=== PATIENT | male | born 1940 | race Caucasian/White ===

== ENCOUNTER 2020-04-11 08:51 | Outpatient (REF) | payer MEDICARE, OTHER, SELFPAY ==
--- NOTE | 2020-04-11 14:08 | MHC.AU.P13 ---
Adult Audiological Evaluation Date of Visit: 04/11/20 Varnish Melter Used: Not Applicable Reason for Appointment: Audiologic re-evaluation due to question of change in hearing ability. Slick notes he is having a difficult time using the hearing aids over the past year. Since last tested, he is using oxygen which has a thick tube which goes around his ears, he wears glasses, and due to COVID-19 wears a mask when going out. He is mostly at home and feels he is managing not regularly using the hearing aids at this time. Previous Hearing Test Results: 03/01/2019 [facility] Bilateral mild sloping to severe sensorineural hearing loss with 88% speech understanding for the right ear and 76% for the left ear at 70 dB HL. Ear History: Bothersome Hyperacusis/Tinnitus/Ringing/Noises in Ears: Both Ears History of occupational noise exposure?: Yes Medical History: Medical History: Cancer Rheumatoid Arthritis Slick reports he has been on both chemotherapy and then immunotherapy for the cancer. Due to side effects, he has gone off all cancer treatments. Luckily he was told after his last workup, the cancer has not progressed. Allergies: Medication List: Oxygen, Anoro, Albuterol, Prednisone, Vitamin D3, Ompeprazole, Fludcinonide, Xiindra, Zyrtec, Melatonin, Vitamin C, Morphine, Asprin, Cefazolin, Levaquin, Zymor, Ketzal, Ancef Hearing Instrument History- Right Ear: Special Education Paraprofessional: [employer] Model: BioLight [employer] V 90 M Serial Number: [id number] Battery Size: 312 Repair Warranty: Dispensed By: [facility] Date of Fittin07/09/2015 Hearing Instrument History- Left Ear: Special Education Paraprofessional: [employer] Model: [employer]Light [employer] V 90 M Serial Number: [id number] Battery Size: 312 Warranty: 03/05/2021 Loss and Damage Warranty: 03/05/2021 Dispensed By: [facility] Date of Fittin12/26/2017 Otoscopy: Right Ear: Unremarkable Left Ear: Unremarkable Tympanometry: Tympanometry performed due to: Right Ear: Not performed at today's visit Left Ear: Not performed at today's visit Hearing Evaluation: Transducer(s) Used: Insert Earphones Bone Conduction Method: Conventional Audiometry Stimuli Used: Pure Tones Right Ear: Description of Hearing: Moderate sloping to moderately-severe sensorineural hearing loss Left Ear: Description of Hearing: Mild sloping to moderately-severe sensorineural hearing loss Speech Recognition Threshold (SRT): Method Used: Monitored Live Voice Stimuli Used: Spondee Words Right Ear: 45 dB HL Left Ear: 45 dB HL Word Discrimination: Method: Recorded Lists Word Lists Used: NU-6 Right Ear: 76% at 65 dB HL 96% at 70 dB HL Left Ear: 72% at 70 dB HL Most Comfortable Level (MCL): Right Ear: 65 dB HL Left Ear: 70 dB HL QuickSIN: Did not test due to Slick's history of very bothersome hyperacusis. Loud sounds cause ear pain Comparison: Compared to most recent evaluation: Low frequency thresholds have decreased 5-10 dB with thresholds at 8000 Hz improving 10 dB HL. Speech discrimination is overall stable when tested at 70 dB HL for both ears. Recommendations: Audiological re-evaluation in one year. Provided a face mask clip to try to help keep the mask elastics away from Slick's ears. Due to his involved medical history, he is advised to use the hearing aids as he feels comfortable. Diagnosis: Primary Diagnosis: H90.3 Bilateral Sensorineural Hearing Loss Services Performed: Comprehensive Audiological Evaluation (CPT 83216) Signature: Provider: Lesvia Payton, [facility]
== END 2020-04-11 08:52 | disposition home or self-care (01) ==
LOC: HO.SH 08:51
PROVIDERS: Visit Provider Internal Medicine
DX: H90.3 Sensorineural hearing loss, bilateral (principal)
CPT/HCPCS: 92557

== ENCOUNTER 2020-09-18 09:42 | Inpatient (IN) | payer MEDICARE, OTHER, SELFPAY ==
[2020-09-18] VITALS (7 sets, daily range): BP systolic 133–202; BP diastolic 66–98; PULSE 75–94; RESP 14–24; TEMP 36.8–37.1; O2SAT 95–99; BMI 22.8
--- NOTE | ~2020-09-18 | CT_ITS ---
EXAMINATION: CT ANGIOGRAM NECK WITH CONTRAST CT ANGIOGRAM BRAIN WITH CONTRAST CLINICAL INFORMATION: Altered mental status. COMPARISON: Noncontrast head CT performed just prior. TECHNIQUE: Test bolus sequences followed by intravenous administration 100 mL of Omnipaque 350. Helical imaging was performed in the axial plane from the thoracic inlet to the skull vertex. Delayed postcontrast imaging of the head was also performed. The data was processed at the senior technologist workstation for generation of MIP sequences. Angled MIPs and volume rendered reformatted images were also generated at an offline 3D workstation. Stenoses are assessed in accordance with NASCET criteria unless otherwise indicated. This CT examination was performed using dose optimization techniques as appropriate, variously including the following: *Automated exposure control *Adjustment of mA and/or kV according to patient size (this includes techniques or standardized protocols for targeted exams where dose is matched to indication/reason for exam; i.e. extremities or head) *Use of iterative reconstruction technique DLP: 2120 mGy-cm FINDINGS: Head CT: There is no intracranial hemorrhage, mass effect, or extra-axial collection. No definite territorial infarction is seen. Background changes of mild to moderate chronic microangiopathy are noted. There is no abnormal enhancement. There is a chronic lacunar infarct within the right cerebellum. The extracranial structures are within normal limits. Neck CTA: The aortic arch demonstrates atheromatous changes but is patent. The great vessel origins are patent. Both common carotid arteries are patent. Mild atheromatous changes are seen along the proximal internal carotid arteries without associated stenosis. The bilateral cervical ICA segments are patent. Minimal atheromatous changes are present at the carotid siphons. Both vertebral arteries are patent throughout their cervical course and appear codominant. Head CTA: The intradural vertebral arteries are patent without stenosis. The basilar artery is patent. The bilateral cyber forensics analyst are patent. The bilateral ICAs are patent. 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 The ACAs and MCAs are patent. The dural venous sinuses are patent. Non-vascular findings: The cervical soft tissues appear normal. Severe emphysema is present within the upper lungs. A 1.8 cm stellate lesion is seen within the right lung apex with associated architectural distortion. Advanced spondylosis is present in the spine. CT/CT angio head neck stroke IMPRESSION: CT head: No intracranial hemorrhage or large acute infarction. CTA neck: No hemodynamically significant stenosis in the major arteries of the neck. CTA head: No large vessel occlusion or significant stenosis within the intracranial circulation. 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 Additional findings: Stellate lesion seen at the right lung apex measuring 1.8 cm with associated architectural distortion. Severe emphysema is seen. According to the updated 2017 Fleischner Society recommendations, the advised follow-up imaging for a single solid nodule measuring 8 mm or greater is: Consider CT, PET/CT, or tissue sampling at 3 months. This critical result was discussed with Dr. Adam on 09/18/2020 10:19AM, and it was ascertained that the content and urgency of the report was understood at the time of direct communication.
--- NOTE | ~2020-09-18 | XR_ITS ---
EXAMINATION: XR CHEST CLINICAL INFORMATION: Shortness of breath COMPARISON: Chest radiographs 03/31/2016 TECHNIQUE: Portable upright AP view of the chest was obtained. FINDINGS: There is no pneumothorax, pleural reaction, airspace consolidation, or effusion. The heart is normal in size and the hilar and mediastinal contours are normal. No visible acute bony abnormality. Suspect small cyst right anterior first rib questionably present on prior study 2016. Remainder of the bony structures are unremarkable. XR/XR chest 1V IMPRESSION: 1. No acute intrathoracic disease. No pneumothorax, infiltrate, or effusion. 2. Question small cystic lesion right anterior first rib.
--- NOTE | ~2020-09-18 | MR_ITS ---
MRI OF THE BRAIN WITHOUT IV CONTRAST INDICATION: CVA. COMPARISON: Head CT and CTA head and neck performed earlier the same day. TECHNIQUE: Multiplanar multisequence MR imaging of the brain was obtained without IV contrast. FINDINGS: There is no hydrocephalus, extra-axial surface collection, or herniation. T2 signal changes throughout the supratentorial white matter and central malgorzata, most likely moderate chronic microangiopathy. There are chronic lacunar infarcts within the supratentorial white matter as well. The major flow voids at the skull base are preserved. There is no acute infarct on diffusion-weighted imaging. There is no intracranial hemorrhage on the gradient recalled echo acquisition. Punctate focus of probable chronic hemosiderin staining within the right peritrigonal white matter. The midline structures are normal. The cerebellar tonsils are normally positioned. The cerebellum and brainstem are normal. The craniocervical junction is normal. Osseous marrow signal intensity is homogenous. The visualized soft tissues are unremarkable. MR/MR head/brain wo con IMPRESSION: - There are no acute intracranial findings. No acute infarcts. - T2 signal changes throughout the supratentorial white matter and central malgorzata, most likely moderate chronic microangiopathy. There are chronic lacunar infarcts within the supratentorial white matter as well.
--- NOTE | ~2020-09-18 | CT_ITS ---
EXAMINATION: CT HEAD WITHOUT CONTRAST (STROKE PROTOCOL) CLINICAL INFORMATION: Stroke protocol. Change in speech. COMPARISON: None. TECHNIQUE: Contiguous axial imaging was performed from the skull base to vertex without intravenous administration of contrast. This CT examination was performed using dose optimization techniques as appropriate, variously including the following: *Automated exposure control *Adjustment of mA and/or kV according to patient size (this includes techniques or standardized protocols for targeted exams where dose is matched to indication/reason for exam; i.e. extremities or head) *Use of iterative reconstruction technique DLP: 2120 mGy-cm FINDINGS: There is no intracranial hemorrhage, hematoma, or extra-axial fluid collection. The lateral ventricles are symmetrical in size and configuration and enlarged. There is diffuse periarticular hypodensity suggestive of chronic microangiopathy. The alberto-white matter differentiation appears symmetric. There is no acute infarct or mass lesion. The calvarium appears intact. There is no pneumocephalus or orbital emphysema. The visualized sinuses and middle ears and mastoid air cells show no significant mucosal thickening. There are no air-fluid levels. CT/CT head for stroke IMPRESSION: No acute intracranial process seen. Age-related cerebral volume loss with chronic small vessel microangiopathy. This critical result was discussed with Dr. VILLARREAL at 10:04 am on 09/18/2020. It was ascertained that the content and urgency of the report was understood at the time of direct communication.
--- NOTE | 2020-09-18 09:51 | ECG_ITS ---
Test Reason : STROKE Blood Pressure : / mmHG Vent. Rate : 076 BPM Atrial Rate : 076 BPM P-R Int : 148 ms QRS Dur : 078 ms QT Int : 380 ms P-R-T Axes : 068 048 064 degrees QTc Int : 427 ms Normal sinus rhythm Normal ECG No previous ECGs available Referred By: Sharon Adam Electronically Signed By:TERRANCE LANDRUM MD
--- NOTE | 2020-09-18 09:55 | ED.NEUROSD ---
HPI - Neuro Symptoms/Deficit General Chief Complaint: Neuro Symptoms/Deficit Stated Complaint: dizzy, ?stroke Time Seen by Provider: 09/18/20 09:51 History of Present Illness HPI Narrative: Patient is a 80-year-old male question history of hypertension. No history of strokes in the past. Presented with a history of difficulty with words. Difficulty texting. Patient last time noticed being well was last night at midnight. Patient denies any chest pain. No focal weakness at this time. No nausea no vomiting. No diaphoresis. No history of similar symptoms in the past. No history of strokes in the past. Related Data Home Medications Medication Instructions Recorded Confirmed acetaminophen 650 mg PO Q6H PRN 09/18/20 09/18/20 albuterol sulfate 2 puff PO Q6H PRN 09/18/20 09/18/20 budesonide 1 cap PO DAILY PRN 09/18/20 09/18/20 cyclosporine [Restasis] 1 drp OPHTHALMIC (EYE) BID 09/18/20 09/18/20 fluocinonide 1 appl TOPICAL BEDTIME 09/18/20 09/18/20 omeprazole 1 cap PO DAILY 09/18/20 09/18/20 tamsulosin 1 cap PO BEDTIME 09/18/20 09/18/20 triamcinolone acetonide 1 appl TOPICAL BID PRN 09/18/20 09/18/20 umeclidinium-vilanterol [Anoro 1 puff PO DAILY 09/18/20 09/18/20 Ellipta] Allergies Allergy/AdvReac Type Severity Reaction Status Date / Time aspirin [ASA] Allergy Intermediate PETTICHIAE Unverified 11/15/19 16:13 morphine [MORPHINE] Allergy Intermediate HYPOTENSION Unverified 11/15/19 16:13 cefazolin [From ANCEF] Allergy Unknown UNKNOWN Unverified 11/15/19 16:13 gatifloxacin [From ZYMAR] Allergy Unknown UNKNOWN Unverified 11/15/19 16:13 levofloxacin [From LEVAQUIN] Allergy Unknown UNKNOWN Unverified 11/15/19 16:13 Review of Systems Review of Systems: No fever no chills no chest pain or diaphoresis Yes all other systems are reviewed and are negative PMFSH Past Medical History Attestation statement: The following information was validated with the patient. Social History Social History Alcohol intake: never Patient Tobacco Use Status: Never used Tobacco Use of substances other than those prescribed or required for medical reasons: No Advance Directives: No Advance Directives Information Provided: Yes Physical Exam Vital Signs: Vital Signs: Last Vital Signs Temp 98.8 F 09/18/20 14:33 Pulse 81 09/18/20 15:21 Resp 14 09/18/20 14:33 BP 156/75 H 09/18/20 15:21 Pulse Ox 95 09/18/20 15:21 Oxygen Flow Rate 2 09/18/20 10:21 Body Mass Index 22.8 Appearance: Alert. Oriented X3. No acute distress. Eyes: Pupils equal, round and reactive to light. ENT: Pharynx normal. Neck: Normal inspection. Neck supple. No lymph nodes noted. No crepitus CVS: Normal heart rate and rhythm. Pulses normal. Normal S1 and S2 Respiratory: No respiratory distress. Breath sounds normal. No Wheezing. No rales Abdomen: Soft and nontender. No rigidity. No distention. good BS x4 Skin: Skin warm and dry. Normal skin color. Normal skin turgor. Extremities: No lower extremity edema. Neurovascular intact to all extremities. No Lacerations. No Rash Neuro: Oriented X 3. No motor deficit. No sensory deficit. Moving all extermities. No slurred speech MDM - Neuro Symptoms/Deficit MDM Narrative Medical decision making narrative: CT scan of the head was grossly negative for any acute evidence of bleeding. Patient had change in speech clumsiness. Question secondary to CVA. Patient's last well time was midnight last night. CT scan of the head was grossly negative for any acute evidence of bleeding. CTA was grossly negative for any acute evidence of large vessel occlusion. Discussed with neurology agreed patient not a tPA candidate. Aspirin given. Will admit patient for further evaluation. Lab Data Result diagrams: 09/18/20 10:49 09/18/20 10:49 Labs: Lab Results 09/18/20 09/18/20 09/18/20 Range/Units 09:45 10:00 10:49 WBC 9.6 (4.8-10.8) X10*3/uL RBC 4.32 L (4.60-5.80) X10*6/uL Hgb 12.9 L (14.0-18.0) g/dl Hct 39.5 L (42-52) % MCV 91.4 (80-98) fL MCH 29.9 (27.0-33.0) pg MCHC 32.7 (31.0-36.0) g/dl RDW 13.9 (11.0-16.0) % Plt Count 225 (160-400) X10*3/uL MPV 9.0 L (9.4-12.4) fL Immature Gran % (Auto) 0.5 H (0.0-0.4) % Neut % (Auto) 82.7 H (45-73) % Lymph % (Auto) 6.2 L (20-40) % [place] % (Auto) 8.2 (2-11) % Eos % (Auto) 2.0 (0-4) % Baso % (Auto) 0.4 (0-2) % Lymph # (Auto) 0.6 L (1.2-4.9) X10*3/uL [place] # (Auto) 0.8 (0.1-1.2) X10*3/uL Eos # (Auto) 0.2 (0.0-0.4) X10*3/uL Baso # (Auto) 0.0 (0.0-0.2) X10*3/uL Abs Immat Gran (auto) 0.05 H (0.00-0.03) X10*3/uL Absolute Neuts (auto) 7.9 (2.0-8.3) X10*3/uL Absolute Nucleated RBC 0.000 (0.0-0.012) X10*3/uL Nucleated RBC % (auto) 0.0 (0.0-0.2) /100WBC Whole Blood PT 11.9 (11.1-13.5) sec Whole Blood INR 1.0 (0.9-1.1) Sodium (135-145) mmol/L Potassium (3.3-5.1) mmol/L Chloride (96-108) mmol/L Carbon Dioxide (22-29) mmol/L Anion Gap (12-20) BUN (9-16) mg/dL Creatinine (0.5-1.4) mg/dL Estim Creat Clear Calc Estimated GFR POC Glucose 112 (60-115) mg/dL Random Glucose (60-115) mg/dL Calcium (8.4-10.2) mg/dL COVID-19 (QUINN) (Negative) COVID-19 Clin Com 09/18/20 09/18/20 Range/Units 10:49 11:57 WBC (4.8-10.8) X10*3/uL RBC (4.60-5.80) X10*6/uL Hgb (14.0-18.0) g/dl Hct (42-52) % MCV (80-98) fL MCH (27.0-33.0) pg MCHC (31.0-36.0) g/dl RDW (11.0-16.0) % Plt Count (160-400) X10*3/uL MPV (9.4-12.4) fL Immature Gran % (Auto) (0.0-0.4) % Neut % (Auto) (45-73) % Lymph % (Auto) (20-40) % [place] % (Auto) (2-11) % Eos % (Auto) (0-4) % Baso % (Auto) (0-2) % Lymph # (Auto) (1.2-4.9) X10*3/uL [place] # (Auto) (0.1-1.2) X10*3/uL Eos # (Auto) (0.0-0.4) X10*3/uL Baso # (Auto) (0.0-0.2) X10*3/uL Abs Immat Gran (auto) (0.00-0.03) X10*3/uL Absolute Neuts (auto) (2.0-8.3) X10*3/uL Absolute Nucleated RBC (0.0-0.012) X10*3/uL Nucleated RBC % (auto) (0.0-0.2) /100WBC Whole Blood PT (11.1-13.5) sec Whole Blood INR (0.9-1.1) Sodium 138 (135-145) mmol/L Potassium 4.8 (3.3-5.1) mmol/L Chloride 102 (96-108) mmol/L Carbon Dioxide 31 H (22-29) mmol/L Anion Gap 10 L (12-20) BUN 20 H (9-16) mg/dL Creatinine 1.07 (0.5-1.4) mg/dL Estim Creat Clear Calc 53.8 Estimated GFR > 60 POC Glucose (60-115) mg/dL Random Glucose 104 (60-115) mg/dL Calcium 9.6 (8.4-10.2) mg/dL COVID-19 (QUINN) Negative (Negative) COVID-19 Clin Com See Note ECG Data Interpretation: Sinus heart rate of 80 MO QRS QT within normal limits is no acute ST segment elevation noted. NIH Stroke Scale Internal: Initial- Upon Arrival Time: 10:00 Level of Consciousness: Alert Level of Consciousness Questions: Answers both questions correctly Level of Consciousness Commands: Performs both tasks correctly Best Gaze: Normal Visual: No visual loss Facial Palsy: Normal Motor Arm (Right): No drift Motor Arm (Left): No drift Motor Leg (Right): No drift Motor Leg (Left): No drift Limb Ataxia: Absent Sensory: Normal Best Language: No aphasia Dysarthia: Normal
[2020-09-18 10:03] LABS: Prothrombin Time Whole Bld POC 11.9 sec (11.1-13.5)
[2020-09-18] MEDS: iohexoL 350 MG/ML 100 ML INFUS..BTL IV (10:15)
[2020-09-18 10:46] LABS: Glucose, Whole Blood 112 mg/dL (60-115)
[2020-09-18 10:55] LABS: MANUAL DIFF FLAG NO
[2020-09-18 11:02] LABS: Basophils Percent Auto 0.4 % (0-2); Eosinophils Absolute Auto 0.2 X10*3/uL (0.0-0.4); Hematocrit 39.5 % (42-52); Hemoglobin 12.9 g/dl (14.0-18.0); Imm Gran Abs Auto 0.05 X10*3/uL (0.00-0.03); Imm Gran Pct Auto 0.5 % (0.0-0.4); Lymphocytes Absolute Auto 0.6 X10*3/uL (1.2-4.9); Lymphocytes Percent Auto 6.2 % (20-40); Mean Corpuscular HGB Conc 32.7 g/dl (31.0-36.0); Mean Corpuscular Hemoglobin 29.9 pg (27.0-33.0); Mean Corpuscular Volume 91.4 fL (80-98); Monocytes Absolute Auto 0.8 X10*3/uL (0.1-1.2); Monocytes Percent Auto 8.2 % (2-11); Neutrophils Absolute Auto 7.9 X10*3/uL (2.0-8.3); Neutrophils Percent Auto 82.7 % (45-73); Platelet Count 225 X10*3/uL (160-400); Red Blood Count 4.32 X10*6/uL (4.60-5.80); Red Cell Distribution Width 13.9 % (11.0-16.0); White Blood Count 9.6 X10*3/uL (4.8-10.8)
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
[2020-09-18 11:29] LABS: Anion Gap 10 (12-20); Blood Urea Nitrogen 20 mg/dL (9-16); Calcium 9.6 mg/dL (8.4-10.2); Carbon Dioxide 31 mmol/L (22-29); Chloride 102 mmol/L (96-108); Creatinine Clr Calc Pharmacy 53.8; Estimated Glomerular Filt Rate > 60; Glucose Random 104 mg/dL (60-115); Potassium 4.8 mmol/L (3.3-5.1); Sodium 138 mmol/L (135-145)
--- NOTE | 2020-09-18 11:29 | PC.NURSE ---
pt states that he took 2 extra strength tylenol at 0700 today for l eye pain. aware
--- NOTE | 2020-09-18 11:36 | PC.NURSE ---
pt aware of plan of care for admission to hosp.
--- NOTE | 2020-09-18 11:45 | PHA.MEDREC ---
Pharmacy Consult ? Medication Reconciliation Pharmacy has completed the medication reconciliation. Reports taking budesonide 3mg prn for diarrhea however there is no recently claim history. Gisella Mike, PharmD
[2020-09-18 12:30] LABS: COVID-19 Test Negative (Negative); IDNOW Serial# 08D9AD1C
[2020-09-18] MEDS: Metoclopramide HCl 10 MG/2 ML VIAL IVPUSH (13:33)
[2020-09-18] MEDS: diphenhydrAMINE HCL 50 MG/ML VIAL 25 MG IVPUSH (13:33)
--- NOTE | 2020-09-18 14:09 | PC.NURSE ---
dr. kirby at bedside, pt aware of plan of care for admission to hosp.
--- NOTE | 2020-09-18 14:51 | PC.NURSE ---
physical therapy at bedside, pt aware of plan of care.
[2020-09-18] MEDS: 0.9 % Sodium Chloride Flush 3 ML SYRINGE IVFLUSH (15:34)
[2020-09-18] MEDS: Aspirin 81 MG TAB.CHEW PO (15:34)
[2020-09-18] MEDS: Heparin Sodium,Porcine 5,000 UNIT/ML VIAL 5000 UNIT SUBCUT (15:34)
--- NOTE | 2020-09-18 15:57 | MHC.STROKE ---
Addendum entered by Rosa Patel RN 09/19/20 12:11: I REVIEWED THE AM LIPID PANEL, LDL IS 66, I MET WITH THE PATIENT AGAIN TODAY AND EXPLAINED AND REINFORCED THE PLAN OF CARE. DR TRAVIS DID SEE THE PATIENT AND HE IS RECOMMENDING AN OUTPATIENT EEG AND NO DRIVING AT THIS TIME. I DID COMMUNICATE THIS TO DR HIGGINBOTHAM. Original Note: 09/18/20 0938 [facility] PRE-NOTIFIED FOR STROKE ALERT , WORD FINDING, DIFFICULTY TEXTING, LKW AT 0000. DISCOVERY OF SYMPTOMS AT 0600. NIHSS = 1. EXCLUDED FROM TPA BASED ON DELAY IN ARRIVAL FROM ONSET, OUT OF THE WINDOW. CTH AND CTA H/N NO BLEED AND NO LVO. PASSED SWALLOW SCREEN PRIOR TO PO. I MET WITH THE PATIENT AND SON THIS AFTERNOON WHILE THE SPEECH THERAPIST WAS THERE. SPEECH WILL CONTINUE TO FOLLOW. I REVIEWED THE STROKE PLAN OF CARE, I REVIEWED HIS INDIVIDUAL RISK FACTORS AND S&S OF STROKE. I PROVIDED AND REVIEWED THE STROKE EDUCATION BOOKLET. WE DISCUSSED IF HE HAS A BP CUFF AT HOME AND HE DOES. I HAVE ENCOURAGED HIM TO MONITOR HIS BP AT HOME. I WILL PROVIDE A CHART/PEN FOR HIM TOMORROW. HIS BP WAS 202/98. HE SAID HIS BP IS USUALLY 130'S, ALTHOUGH HIS HR RUNS IN THE 100'S DUE TO HIS COPD. HE IS NOT ON AN ANTIHYPERTENSIVE MED AT HOME. RECOMMENDING A LIPID PANEL, REHAB, ECHO, MRI, NEUROLOGY CONSULT PENDING. I WILL CONTINUE TO FOLLOW.
--- NOTE | 2020-09-18 16:36 | P.HPHOSP_ITS ---
Assessment and Plan (1) CVA (cerebral vascular accident): Status: Acute (2) History of COPD: Status: Acute 1. Cva possible: Admit to tele Neuro checks Patient was given aspirin, added lipid levels Will add statin Neuro evaluation, also added MRI/echo for completing workup. Patient says that he has petechiae with aspirin use: But already received aspirin in the emergency room, will continue to monitor 2. Elevated blood pressure: Not on any blood pressure medications at home All of we will avoid strict blood pressure control currently with possible CVA symptoms. Continue to monitor. 3. COPD history Will add p.r.n. nebs, continue patient's Ellipta. 4. DVT prophylaxis: Subcu heparin Above management discussed with the patient and patient's son in detail the both understand and in agreement with above plan, patient is a DNR DNI. History of Present Illness Date of Service: 09/18/20 Chief Complaint: Word-finding difficulty, texting difficulty 80 y/o M was history of COPD, also history ofcancer ( says multiple areas including liver, the right lung area, also spine -but unknown primary per patient)-patient is poor historian so history was taken with the help of patient and his son . As per the patient he was fine last night when he went to bed and this morning when he woke up found to have word-finding as well as texting difficulty, he said that his son called afterwards and found to have him difficulty speaking as well as able to tell anything-subsequently patient came to the hospital. his son called had some similar symptoms day before also. ED physician saw the patient -patient's symptoms are seem improving slowly, could able to speak better, also able to text but still not near his baseline. He denies any history of any strokes in the past. In the ED found to have elevated blood pressure readings but is not at any blood pressure medication at home. He denies any new weakness or numbness or any vision changes. Initially had mild headache but resolved. Denies any cough or phlegm or shortness of breath or nausea or vomiting or fever or chills. We are trying to get the records from [facility] for further information. Past medical history osuna: 1. Asthma/copd on home oxygen 2 L. 2. has hx of cancer (says that follows up with Dr. Leon in [facility]-? Unknown primary but has involvement of liver, spine, right lung)- patient was on chemo but stopped due to adverse effect question pemphgoid mouth area. 3.OA 4. Wear her hearing aids -loud on wearing. Also wears glasses We are trying to get the records from [facility] for further information. Past surgical history: Cataract extraction bilateral Colonoscopy Foot surgery in 1996 and 1998-he could not elaborate Hernia repair? Umbilical Tonsillectomy Trigger finger releases Social history: Used to be a preschool teacher's assistant, quit smoking 36 year ago, denies any recreational drug use or at alcohol use. Family history: Not pertinent to current visit. Review of Systems Review of Systems: Denies any chest pain or shortness of breath or abdominal pain or fever or chills or cough or phlegm or any nausea or vomiting or diarrhea or any urinary complaints. Denies any skin rash Has still some difficulty typing, otherwise could able to speak and answer most of the question PMFSH Family history: reviewed and not pertinent Social History Household Members: None Housing: House Do you presently have visiting nurse or other home services: Yes ([employer]) Alcohol intake: never Patient Tobacco Use Status: Never used Tobacco service: No Current occupational status: retired Meds Allergies Allergy/AdvReac Type Severity Reaction Status Date / Time morphine [MORPHINE] Allergy Severe HYPOTENSION Verified 09/19/20 01:02 aspirin [ASA] Allergy Intermediate PETTICHIAE Verified 09/19/20 01:02 cefazolin [From ANCEF] Allergy Unknown Rash Verified 09/19/20 01:02 gatifloxacin [From ZYMAR] Allergy Unknown Rash Verified 09/19/20 01:02 levofloxacin [From LEVAQUIN] Allergy Unknown Rash Verified 09/19/20 01:02 Active Medications: Current Medications Generic Name Dose Route Start Last Admin Trade Name Freq PRN Reason Stop Dose Admin Acetaminophen 650 mg 09/18/20 14:35 Acetaminophen 325 Mg Tablet PO Q6H PRN Pain Albuterol Sulfate 2 puff 09/18/20 14:35 Albuterol Sulfate 90 Mcg 8 Gm Inhaler INHALE Q6H PRN wheezing Artificial Tears 1 drop 09/18/20 15:08 Artificial Tears 15 Ml Drops EYE-BOTH Q4H PRN Dry Eyes Heparin Sodium (Porcine) 5,000 unit 09/18/20 14:45 09/18/20 15:34 Heparin Sodium,Porcine 5,000 Unit/Ml Vial SUBCUT 5,000 unit Q12H [facility] Administration Non-Formulary Medication 1 puff 09/19/20 09:00 Umeclidinium-Vilanterol [Anoro Ellipta] PO DAILY [facility] Omeprazole 40 mg 09/19/20 06:30 Omeprazole 40 Mg Capsule.Dr PO DAILY@0630 [facility] Pharmacy Consult 1 each 09/18/20 10:52 Consult Rx Perform Med Rec MISCELLANE ONCE PRN Consult order Sodium Chloride 3 ml 09/18/20 16:00 09/18/20 15:34 0.9 % Sodium Chloride Flush 3 Ml Syringe IVFLUSH 3 ml QSHIFT [facility] Administration Tamsulosin HCl 0.4 mg 09/18/20 21:00 Tamsulosin Hcl 0.4 Mg Capsule PO BEDTIME [facility] Triamcinolone Acetonide 1 appl 09/18/20 14:35 Triamcinolone Acet 0.1 % Cream 15 Gm Tube TOPICAL BID PRN Rash Protocol Home Medications Medication Instructions Recorded Confirmed Last Taken Type acetaminophen 650 mg PO Q6H PRN 09/18/20 09/18/20 09/18/20 09:00 History albuterol sulfate 2 puff PO Q6H PRN 09/18/20 09/18/20 Unknown History budesonide 1 cap PO DAILY PRN 09/18/20 09/18/20 Unknown History cyclosporine [Restasis] 1 drp OPHTHALMIC (EYE) BID 09/18/20 09/18/20 Unknown History fluocinonide 1 appl TOPICAL BEDTIME 09/18/20 09/18/20 Unknown History omeprazole 1 cap PO DAILY 09/18/20 09/18/20 Unknown History tamsulosin 1 cap PO BEDTIME 09/18/20 09/18/20 Unknown History triamcinolone acetonide 1 appl TOPICAL BID PRN 09/18/20 09/18/20 Unknown History umeclidinium-vilanterol [Anoro 1 puff PO DAILY 09/18/20 09/18/20 09/18/20 09:00 History Ellipta] cetirizine [Zyrtec] 5 mg PO DAILY 09/19/20 09/19/20 Unknown History diphenhydramine HCl [Benadryl] 25 mg PO BEDTIME 09/19/20 09/19/20 Unknown History melatonin 10 mg PO BEDTIME 09/19/20 09/19/20 Unknown History Physical Exam Vital Signs and Narrative: Vital Signs: Last Vital Signs Temp 98.8 F 09/18/20 14:33 Pulse 81 09/18/20 15:21 Resp 14 09/18/20 14:33 BP 156/75 H 09/18/20 15:21 Pulse Ox 95 09/18/20 15:21 Oxygen Flow Rate 2 09/18/20 10:21 Body Mass Index 22.8 Physical exam: Constitution: Alert. Oriented X3. No acute distress. Eyes:eomi,perrla ENT: Pharynx normal. Neck: Normal inspection. Neck supple. CVS: [id number] , no murmur. Respiratory: No respiratory distress. Breath sounds normal. No Wheezing. No rales Abdomen: Soft and nontender. No rigidity. No distention, bs present. Skin: Skin warm and dry. Normal skin color. Normal skin turgor. Extremities: No lower extremity edema. Neuro: Oriented X 3. move all extermities , sensation intact. No slurred speech still has some texting difficulity Results Labs CBC and Chem 7: 09/18/20 10:49 09/18/20 10:49 Labs: Laboratory Results - last 24 hr 09/18/20 09/18/20 09/18/20 09:45 10:00 10:49 MCV 91.4 MCH 29.9 MCHC 32.7 RDW 13.9 Plt Count 225 MPV 9.0 L Immature Gran % (Auto) 0.5 H Neut % (Auto) 82.7 H Lymph % (Auto) 6.2 L [place] % (Auto) 8.2 Eos % (Auto) 2.0 Baso % (Auto) 0.4 Lymph # (Auto) 0.6 L [place] # (Auto) 0.8 Eos # (Auto) 0.2 Baso # (Auto) 0.0 Abs Immat Gran (auto) 0.05 H Absolute Neuts (auto) 7.9 Absolute Nucleated RBC 0.000 Nucleated RBC % (auto) 0.0 Whole Blood PT 11.9 Whole Blood INR 1.0 Anion Gap Estim Creat Clear Calc Estimated GFR POC Glucose 112 Random Glucose Calcium COVID-19 (QUINN) COVID-19 Clin Com 09/18/20 09/18/20 10:49 11:57 MCV MCH MCHC RDW Plt Count MPV Immature Gran % (Auto) Neut % (Auto) Lymph % (Auto) [place] % (Auto) Eos % (Auto) Baso % (Auto) Lymph # (Auto) [place] # (Auto) Eos # (Auto) Baso # (Auto) Abs Immat Gran (auto) Absolute Neuts (auto) Absolute Nucleated RBC Nucleated RBC % (auto) Whole Blood PT Whole Blood INR Anion Gap 10 L Estim Creat Clear Calc 53.8 Estimated GFR > 60 POC Glucose Random Glucose 104 Calcium 9.6 COVID-19 (QUINN) Negative COVID-19 Clin Com See Note Imaging Radiologist's Impressions: Impressions Chest X-Ray 09/18/20 09:51 IMPRESSION: 1. No acute intrathoracic disease. No pneumothorax, infiltrate, or effusion. 2. Question small cystic lesion right anterior first rib. Head CT 09/18/20 09:51 IMPRESSION: No acute intracranial process seen. Age-related cerebral volume loss with chronic small vessel microangiopathy. This critical result was discussed with Dr. VILLARREAL at 10:04 am on 09/18/2020. It was ascertained that the content and urgency of the report was understood at the time of direct communication. Head/Neck CTA 09/18/20 09:51 IMPRESSION: CT head: No intracranial hemorrhage or large acute infarction. CTA neck: No hemodynamically significant stenosis in the major arteries of the neck. CTA head: No large vessel occlusion or significant stenosis within the intracranial circulation. 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 Additional findings: Stellate lesion seen at the right lung apex measuring 1.8 cm with associated architectural distortion. Severe emphysema is seen. According to the updated 2017 Fleischner Society recommendations, the advised follow-up imaging for a single solid nodule measuring 8 mm or greater is: Consider CT, PET/CT, or tissue sampling at 3 months. This critical result was discussed with Dr. Villarreal on 09/18/2020 10:19AM, and it was ascertained that the content and urgency of the report was understood at the time of direct communication. Quality Stroke Does the patient have a stroke diagnosis?: No VTE Prior VTE?: No VTE Risk Level:: Medical - moderate - high VTE Device Contraindication: N/A - Device Ordered VTE Drug Contraindication: N/A - Med Ordered
--- NOTE | 2020-09-18 17:08 | MHC.SL.SWA ---
Speech Pathologist Impression: Within Functional Limits Risk of Aspiration Due to: Dysphasia Diet Status: No Change Liquid Consistency and Strategies for Safe Swallow: Liquid Intake Recommendation: Thin Liquid Intake Strategies: Unrestricted Solid Food Consistency: Dietary Recommendations: Regular Additional Modifications to Solid Foods: Oral Medication Intake: Whole with Liquid Compensatory Strategies and Precautions to be Taken for Safe Swallow: Sitting Upright (90 deg) Liquids from Cup Liquids from Straw Small Bites and Sips Alternate Liquids/Solids Avoid Specific Foods Supervision While Eating and Drinking for Safe Swallow: None Needed Foods to Avoid: Avoid tough and sticky foods. Swallowing Recommended Treatments: Recommendation for Speech: NA:Typical Evaluation Inpatient Speech Therapy Comment: Pt will be seen for inpatient speech/lang/cog evaluation once admitted to [facility]. Frequency/Duration: Date Range for Service Req: Timeline to reassess: Furnace Combustion Tester Clinican/Clinical Fellow: No Supervisory Statement: I have reviewed and agree with the student/clinical fellow's documentation: N/A Speech Language Pathologist: Maribel Stahl M.A. CCC-AGRICULTURE SALES ACCOUNT MANAGER
[2020-09-18] MEDS: Tamsulosin HCL 0.4 MG CAPSULE PO (20:33)
[2020-09-19 00:32] VITALS: BP 157/75; PULSE 82; RESP 16; TEMP 37.1; O2SAT 96
[2020-09-19] MEDS: Acetaminophen 325 MG TABLET 650 MG PO (01:18)
[2020-09-19] MEDS: 0.9 % Sodium Chloride Flush 3 ML SYRINGE IVFLUSH ×2 (01:20→10:53)
[2020-09-19] MEDS: Heparin Sodium,Porcine 5,000 UNIT/ML VIAL 5000 UNIT SUBCUT (03:45)
[2020-09-19 04:00] VITALS: BP 140/71; PULSE 78; RESP 18; TEMP 36.9; O2SAT 95
[2020-09-19] MEDS: Omeprazole 40 MG CAPSULE.DR PO (06:08)
--- NOTE | 2020-09-19 07:30 | CA_ITS ---
Transthoracic Echocardiogram Patient (Last, First, Middle): Slick Cardona, Gender: Male Date of : 1940 Age: 80 Procedure Date: 09/19/2020 Procedure Type: Transthoracic Echocardiogram Location: [facility] Height: 172.72 cm Weight: 67.59 kg BSA: 1.80 m2 Heart Rate: bpm BP: 140 / 71 mmHg Display Designer: Referring MD: Therese Sterling MD Field Coordinator: Alberto Tolbert MD Symptoms: possible cva Study Quality: Good ECG Rhythm: Sinus Conclusions: - 1. Normal LV systolic function with grade 1 diastolic dysfunction 2. Normal cardiac valvular Doppler 3. Normal RV systolic pressure 4. No pericardial effusion Findings Left Ventricle Normal left ventricular size, thickness, and systolic function. The visually estimated ejection fraction is between 60-65%. Spectral Doppler is indicative of an impaired relaxation filling pattern. E/E prime ratio is <8, consistent with normal filling pressures. Evidence suggests grade I (mild) diastolic dysfunction. Right Ventricle Normal right ventricular cavity size and systolic function. Atria Both atria are normal in size. There is lipomatous hypertrophy of the interatrial septum. Interatrial shunt cannot be excluded. Aortic Valve Normal aortic valve structure and function. There is no aortic valve stenosis. There is no aortic valve regurgitation. Mitral Valve Normal mitral valve structure and function. There is trace mitral valve regurgitation. There is no mitral valve stenosis. Pulmonic Valve The pulmonic valve is likely normal. Tricuspid Valve Normal tricuspid valve structure. There is trace tricuspid valve regurgitation. The right ventricular systolic pressure is normal. The right ventricular systolic pressure is 16 mmHg. Normal right atrial pressure. There is no evidence of pulmonary hypertension. Great Vessels All visible segments of the aorta are normal in size. The pulmonary artery was not well visualized. Venous The inferior vena cava is normal in size and collapses greater than 50% with inspiration. Pericardium/Pleural There is no evidence of pericardial effusion. Prior Study Comparison No prior study available for comparison. Recommendations, Care & Conclusions Recommend contrast study to evaluate intracardiac shunting. Measurements 2D Linear Measurements IVSd: 0.97 0.6-0.9/0.6-1.0 cm LVIDd: 4.68 3.9-5.3/4.2-5.9 cm LVIDd Index: 2.60 2.4-3.2/2.2-3.1 cm/m2 LVIDs: 2.61 2.0-3.6 cm LVPWd: 1.09 0.7-1.1 cm Ao Root: 3.20 2.1-3.5 cm LA Diam: 3.00 2.7-3.8/3.0-4.0 cm LAIDs Index: 1.67 1.5-2.3 cm/m2 LV Mass: 211.54 67-162/88-224 g LV Mass Index: 117.52 43-95/49-115 g/m2 LVOT Diam: 2.20 3.0+(-)1.3 cm Mitral Valve MV Pk E: 0.67 MV PK A: 1.02 MV Decel Time: 158.00 E/A: 0.70 E'Lateral: 5.77 E'Medial: 8.92 E/E' Med: 7.50 E/E' Lat: 11.70 PHT: 46.00 MVA PHT: 4.78 Decel Luce: 4.25 Aortic Valve AoV Pk Tyler: 1.24 AoV Mn Tyler: 0.82 AoV VTI: 0.29 AoV Pk Grad: 6.00 Aov Mn Grad: 3.00 FANNIE Cont.VTI: 2.76 LVOT LVOT Pk Tyler: 0.77 LVOT Mn Tyler: 0.52 LVOT VTI: 0.21 LVOT Pk Grad: 2.00 LVOT Mn Grad: 1.00 LVOT Diam: 2.20 LVOT Area: 3.80 Diastolic Function MV Pk E: 0.67 MV Pk A: 1.02 E/A: 0.70 E'Medial: 8.92 E/E' Med: 7.50 E' Laterial: 5.77 E/E' Lat: 11.70 Tricuspid Valve TR Pk Tyler: 1.79 TR Pk Grad: 13.00 RA Press: 3.00 RVSP: 16.00 Great Vessels Aorta Ao Root-2D: 3.20 2.0-3.7 cm Ao Asc: 3.60 2.1-3.4 cm Pulmonary Valve PV Pk Tyler: 0.96 Peak PV Grad: 4.00 Updated in Other Vendor System with Status of Final Alberto Tolbert MD electronically signed on 09/19/2020 1:03:44 PM with status of Final
[2020-09-19 07:47] VITALS: BP 165/76; PULSE 73; RESP 20; TEMP 36.6; O2SAT 96
[2020-09-19 07:58] LABS: Cholesterol 122 mg/dL; HDL Cholesterol 41 mg/dL; LDL Cholesterol Calculated 67 mg/dl; Triglycerides 70 mg/dL
--- NOTE | 2020-09-19 09:26 | MHC.CM.PN ---
CM met with Patient at bedside and addressed IMM with him, providing him with the original and placing a copy on the chart; CM also spoke with Patient's Son/HCP/Hakeem @ [phone].Patient lives alone in a free standing ranch style home that is part of a [facility] and he uses O2 thru [facility] and his PCP is DR. Kika Alcala in [place].Patient's goal is to return home with a new referral to [facility] and CM has initiated and will follow for dc planning. Patient has a rollator, his house is handicap accessible and a w/c for outdoor distances.
[2020-09-19] MEDS: Aspirin Enteric Coated 81 MG TABLET.DR PO (10:53)
--- NOTE | 2020-09-19 11:01 | PM.NEUROCN ---
Assessment and Plan (1) Encephalopathy: Status: Acute 80 years old man with transient encephalopathy of unknown cause. There was no obvious infection or toxic exposure. There was no significant metabolic abnormality for explanation. Imaging did not reveal any vascular lesion. Seizure disorder was a possibility. I would recommend obtaining an EEG, which could be done as an outpatient. He should be careful and not drive at this time. History of Present Illness Data of Consult Service Date: 09/19/20 Primary Care Provider: Unknown Physician 80 years old man who apparently has metastatic cancer but unknown primary came to hospital with an episode of confusion. He said he was communicating with his son when he could not communicate. Apparently he could not text well. He remember what happened. His son at 1 point noted some problem and call embolus and he was brought here. He denied any recent cold or flu-like illness headache or any convulsion type activity. He denied taking alcohol or any new drug. Review of Systems Review of Systems: No recent cold or flu-like illness or exposure to alcohol or drugs. [facility] Family History Family history: reviewed and not pertinent Social History Social History Household Members: None Housing: House Do you presently have visiting nurse or other home services: Yes ([employer]) Alcohol intake: never Patient Tobacco Use Status: Never used Tobacco service: No Current occupational status: retired Meds Allergies Allergy/AdvReac Type Severity Reaction Status Date / Time morphine [MORPHINE] Allergy Severe HYPOTENSION Verified 09/19/20 01:02 aspirin [ASA] Allergy Intermediate PETTICHIAE Verified 09/19/20 01:02 cefazolin [From ANCEF] Allergy Unknown Rash Verified 09/19/20 01:02 gatifloxacin [From ZYMAR] Allergy Unknown Rash Verified 09/19/20 01:02 levofloxacin [From LEVAQUIN] Allergy Unknown Rash Verified 09/19/20 01:02 Active Medications: Current Medications Generic Name Dose Route Start Last Admin Trade Name Freq PRN Reason Stop Dose Admin Acetaminophen 650 mg 09/18/20 14:35 09/19/20 01:18 Acetaminophen 325 Mg Tablet PO 650 mg Q6H PRN Administration Pain Albuterol Sulfate 2 puff 09/18/20 14:35 Albuterol Sulfate 90 Mcg 8 Gm Inhaler INHALE Q6H PRN wheezing Albuterol/Ipratropium 3 ml 09/19/20 07:52 Albuterol/Iprat 2.5/0.5mg 3 Ml Ampul.Neb INHALE Q4H PRN Shortness of Breath Artificial Tears 1 drop 09/18/20 15:08 Artificial Tears 15 Ml Drops EYE-BOTH Q4H PRN Dry Eyes Aspirin 81 mg 09/19/20 09:45 09/19/20 10:53 Aspirin Enteric Coated 81 Mg Tablet. PO 81 mg DAILY DANE Administration Heparin Sodium (Porcine) 5,000 unit 09/18/20 14:45 09/19/20 03:45 Heparin Sodium,Porcine 5,000 Unit/Ml Vial SUBCUT 5,000 unit Q12H DANE Administration Omeprazole 40 mg 09/19/20 06:30 09/19/20 06:08 Omeprazole 40 Mg Capsule. PO 40 mg DAILY@0630 [facility] Administration Pharmacy Consult 1 each 09/18/20 10:52 Consult Rx Perform Med Rec MISCELLANE ONCE PRN Consult order Sodium Chloride 3 ml 09/18/20 16:00 09/19/20 10:53 0.9 % Sodium Chloride Flush 3 Ml Syringe IVFLUSH 3 ml QSHIFT DANE Administration Tamsulosin HCl 0.4 mg 09/18/20 21:00 09/18/20 20:33 Tamsulosin Hcl 0.4 Mg Capsule PO 0.4 mg BEDTIME DANE Administration Triamcinolone Acetonide 1 appl 09/18/20 14:35 Triamcinolone Acet 0.1 % Cream 15 Gm Tube TOPICAL BID PRN Rash Protocol Home Medications Medication Instructions Recorded Confirmed Last Taken Type acetaminophen 650 mg PO Q6H PRN 09/18/20 09/18/20 09/18/20 09:00 History albuterol sulfate 2 puff PO Q6H PRN 09/18/20 09/18/20 Unknown History budesonide 1 cap PO DAILY PRN 09/18/20 09/18/20 Unknown History cyclosporine [Restasis] 1 drp OPHTHALMIC (EYE) BID 09/18/20 09/18/20 Unknown History fluocinonide 1 appl TOPICAL BEDTIME 09/18/20 09/18/20 Unknown History omeprazole 1 cap PO DAILY 09/18/20 09/18/20 Unknown History tamsulosin 1 cap PO BEDTIME 09/18/20 09/18/20 Unknown History triamcinolone acetonide 1 appl TOPICAL BID PRN 09/18/20 09/18/20 Unknown History umeclidinium-vilanterol [Anoro 1 puff PO DAILY 09/18/20 09/18/20 09/18/20 09:00 History Ellipta] Physical Exam Vital Signs: Vital Signs: Last Vital Signs Temp 97.9 F 09/19/20 07:47 Pulse 73 09/19/20 07:47 Resp 20 09/19/20 07:47 BP 165/76 H 09/19/20 07:47 Pulse Ox 96 09/19/20 07:47 Oxygen Flow Rate 2 09/18/20 10:21 Body Mass Index 22.8 He was alert and awake with normal spontaneity of speech fluency comprehension and affect. Face was symmetrical. Pupils were round reactive to light. Visual simpson are full. There was no obvious focal weakness. Deep tendon reflexes are absent with flexor plantars. Affect was normal. Results Labs CBC & Chem 7: 09/18/20 10:49 09/18/20 10:49 Labs: Short CBC 09/18/20 Range/Units 10:49 WBC 9.6 (4.8-10.8) X10*3/uL Hgb 12.9 L (14.0-18.0) g/dl Hct 39.5 L (42-52) % Plt Count 225 (160-400) X10*3/uL BMP 09/18/20 10:49 Sodium 138 Potassium 4.8 Chloride 102 Carbon Dioxide 31 H BUN 20 H Creatinine 1.07 Calcium 9.6 His noncontrast MRI of brain did not reveal any acute abnormality. [id number] diffuse atrophy and [id number] chronic microvascular ischemic changes were noted. Procedures Date of Service Date of Service: 09/19/20
[2020-09-19 11:37] VITALS: BP 150/85; PULSE 73; RESP 20; TEMP 36.9; O2SAT 96
[2020-09-19 12:06] VITALS: BP 150/85; PULSE 73; O2SAT 96
--- NOTE | 2020-09-19 13:49 | MHC.CLN ---
NUTRITION PATIENT FOLLOWED IN COMMUNITY BY ONCOLOGY RD. TAKES PROTEIN SUPPLEMENT. RD TO ADD ENSURE 240 ML TWO TIMES DAILY TO PROVIDE 700 KCAL, 40 G PROTEIN.
--- NOTE | 2020-09-19 14:36 | MHC.STROKEDC ---
I MET WITH THE PATIENT AND DISCUSSED HIS MRI FINDINGS, I GAVE HIM A SCREENSHOT OF THE [id number] SEQUENCE AND EXPLAINED IT. HE ALSO HAS A COPY OF THE REPORT TO REIVEW WITH HIS PCP. I ENCOURAGED MAKING AN APPOINTMENT ON TUESDAY, SCHEDULING THE EEG SOON POSSIBLE. NO DRIVING UNTIL CLEARED BY HIS PCP. WE REVIEWED S&S OF STROKE AND TO SEEK EMERGENCY CARE IF SYMPTOMNS RETURN, A TIA CAN BE A WARNING SIGN , HE UNDERSTOOD AND HAD SEVERAL QUESTIONS. HE DEFINITELY FEELS LIKE HIS BRAIN IS SLOW TO PROCESS THINGS. HE ADMITS TO STILL BE GOING THROUGH THE GRIEF PROCESS AFTER HIS 'S AND HE DOES SEE A COUNSELOR. HE CAN FOLLOW UP WITH NEUROLOGY THROUGH HIS PCP. I DID GIVE HIM THE BP CHART/PEN TO TRACK HIS BP AT HOME. HE SAID HE WILL BE HAVING A VISITING NURSE.
--- NOTE | 2020-09-19 16:00 | MHC.CM.PN ---
[facility] Tuesday09/22/2020)
--- NOTE | 2020-09-19 16:48 | PM.DS ---
DS: Providers Provider Date of Service: 09/19/20 Date of admission: 09/18/20 14:28 Primary care physician: Kika Alcala MD Consults: 09/18/20 14:28 Consult to Neurology Routine Consulting Provider: [facility] Reason for consultation: probable cva Has provider been notified: No DS: Diagnosis Discharge Diagnosis (1) CVA (cerebral vascular accident): Status: Acute (2) History of COPD: Status: Acute DS: Medications Discharge Medications Home Medications: Home Medications Medication Instructions Recorded Confirmed acetaminophen 650 mg PO Q6H PRN 09/18/20 09/18/20 albuterol sulfate 2 puff PO Q6H PRN 09/18/20 09/18/20 budesonide 1 cap PO DAILY PRN 09/18/20 09/18/20 cyclosporine [Restasis] 1 drp OPHTHALMIC (EYE) BID 09/18/20 09/18/20 fluocinonide 1 appl TOPICAL BEDTIME 09/18/20 09/18/20 omeprazole 1 cap PO DAILY 09/18/20 09/18/20 tamsulosin 1 cap PO BEDTIME 09/18/20 09/18/20 triamcinolone acetonide 1 appl TOPICAL BID PRN 09/18/20 09/18/20 umeclidinium-vilanterol [Anoro 1 puff PO DAILY 09/18/20 09/18/20 Ellipta] cetirizine [Zyrtec] 5 mg PO DAILY 09/19/20 09/19/20 diphenhydramine HCl [Benadryl] 25 mg PO BEDTIME 09/19/20 09/19/20 melatonin 10 mg PO BEDTIME 09/19/20 09/19/20 DS: Summary Hospital Course Hospital Course: 80 y/o M was history of COPD, also history ofcancer ( says multiple areas including liver, the right lung area, also spine -but unknown primary per patient)-patient is poor historian so history was taken with the help of patient and his son . As per the patient he was fine last night when he went to bed and this morning when he woke up found to have word-finding as well as texting difficulty, he said that his son called afterwards and found to have him difficulty speaking as well as able to tell anything-subsequently patient came to the hospital. his son called had some similar symptoms day before also. ED physician saw the patient -patient's symptoms are seem improving slowly, could able to speak better, also able to text but still not near his baseline. He denies any history of any strokes in the past. In the ED found to have elevated blood pressure readings but is not at any blood pressure medication at home. He denies any new weakness or numbness or any vision changes. Initially had mild headache but resolved. Denies any cough or phlegm or shortness of breath or nausea or vomiting or fever or chills. Total time spent providing and/or coordinating discharge services. Hospital course: Patient came with somewhat confusion and also had some word-finding difficulty and taxing difficulty-which is improved stepped on tinea sleepy: Patient is workup osuna MRI did not show any acute stroke but has chronic infarct and microvascular changes: Seen by Neurology-thought to be transient encephalopathy of unclear probable seizure and recommended outpatient EEG. Also need to avoid driving until cleared by neurology outpatient. In addition discussed with patient's son patient has chronic infarct on MRI and as microvascular changes: We will add small dose aspirin and statin. Workup osuna echo seems fine. In addition patient's head and neck CTA showed 1.8 centimetre satellite lesion in the lower right lung apex patient said that he had lung lesion on admission also due to his cancer (he follows up with Dr. Leon in [facility]). 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 Patient is to follow up outpatient with Neurology. Patient will be going home with VNA. Above management discussed with the patient in detail length she understand and in agreement with the above plan, time spent 50 minutes and 50% time spent on counseling. Significant findings: As above. Procedures performed: None. Treatment and response: As above. Complications: None. Time Spent with Patient Discharge coordination time: Greater than 30 minutes Quality: Stroke Does the patient have a stroke diagnosis?: No Physical Exam Vital Signs: Vital Signs: Last Vital Signs Temp 98.5 F 09/19/20 11:37 Pulse 73 09/19/20 12:06 Resp 20 09/19/20 11:37 BP 150/85 H 09/19/20 12:06 Pulse Ox 96 09/19/20 12:06 Oxygen Flow Rate 2 09/18/20 10:21 Body Mass Index 22.8 Constitution: Alert. Oriented X3. No acute distress. Eyes:eomi,perrla ENT: Pharynx normal. Neck: Normal inspection. Neck supple. CVS: [id number] , no murmur. Respiratory: No respiratory distress. Breath sounds normal. No Wheezing. No rales Abdomen: Soft and nontender. No rigidity. No distention, bs present. Skin: Skin warm and dry. Normal skin color. Normal skin turgor. Extremities: No lower extremity edema. Neuro: Oriented X 3. move all extermities , sensation intact. No slurred speech still has some texting difficulit DS: Data Data Completed and Pending Labs on day of discharge: Laboratory Results - last 24 hr 09/19/20 06:24 Triglycerides 70 Cholesterol 122 LDL Cholesterol, Calc 67 HDL Cholesterol 41 Discharge Plan Discharge Patient Disposition: Home Health Service Discharge Diagnosis: encephalopathy vs seizure [facility] ([facility] WILL BE OFFERING YOUR HOME HEALTH SERVICES. THE START OF CARE WILL BE NEXT WEEK AND YOU SHOULD HAVE A PHONE CALL ON TUESDAY TO ARRANGE FOR THE BEST TIME. IF YOU DO NOT HEAR FROM THE AGENCY, PLEASE REACH OUT TO THEM AT THE NUMBER PROVIDED.) Ghanshyam Purdy MD [Physician] - 1 Week Kika Alcala MD [Primary Care Provider] - 1 Week Discharge Medications: New aspirin 81 mg Tablet,Delayed Release (Dr/Ec) 81 mg PO DAILY Qty: 30 RF: 0 Continued omeprazole 40 mg capsule,delayed release(DR/EC) 1 cap PO DAILY RF: 0 tamsulosin 0.4 mg capsule 1 cap PO BEDTIME RF: 0 fluocinonide 0.05 % cream 1 appl topical BEDTIME RF: 0 Restasis 0.05 % dropperette 1 drp ophthalmic (eye) BID RF: 0 Anoro Ellipta 62.5-25 mcg/actuation blister with device 1 puff PO DAILY RF: 0 acetaminophen 325 mg Tablet 650 mg PO Q6H PRN (Reason: Pain) RF: 0 triamcinolone acetonide 0.1 % cream 1 appl topical BID PRN (Reason: Rash) RF: 0 budesonide 3 mg capsule,delayed,extend.release 1 cap PO DAILY PRN (Reason: Diarrhea) RF: 0 albuterol sulfate 90 mcg/actuation HFA aerosol inhaler 2 puff PO Q6H PRN (Reason: wheezing) RF: 0 cetirizine 5 mg Tablet 5 mg PO DAILY RF: 0 diphenhydramine HCl [Benadryl] 25 mg Capsule 25 mg PO BEDTIME RF: 0 melatonin 10 mg Tablet 10 mg PO BEDTIME RF: 0 Discharge Orders: Discharge Order (Routine); Ordered 09/19/20 Ordered By: Therese Sterling Diet: advance to usual diet Activity on Discharge: As tolerated Stand Alone Forms: Patient Portal Discharge page Care Plan Goals: Patient came with somewhat confusion and also had some word-finding difficulty and taxing difficulty-which is improved stepped : Patient is workup osuna MRI did not show any acute stroke but has chronic infarct and microvascular changes: Possible seizer-Seen by Neurology and recommended outpatient EEG. Also need to avoid driving until cleared by neurology outpatient. In addition discussed with patient's son patient has chronic infarct on MRI and as microvascular changes: We will add small dose aspirin. Patient is to follow up outpatient with Neurology. Patient will be going home with VNA. Health Concerns: As above. Plan of Treatment: As above. Assessment: As above. Discharge Date/Time: 09/19/20 18:22
--- NOTE | 2020-09-19 16:55 | P.F2F_ITS ---
Service Date Service Date: 09/19/20 Encounter Date of encounter: 09/19/20 Encounter: tia , encephalopathy vs seizure . Reasons for Services MD Overseeing Care: Kika Alcala Homebound: Leaving the home is medically contraindicated at this time without the asist of a device and/or another person due th the listed conditions above and below. Homebound supporting statement: Patient is generalized weak has multiple medical issues including blood pressure monitering, will need help to go to appointments . Certification: Based on the above findings, I certify that this patient is confined to the home and needs intermittent residential care, physical therapy and/or speech therapy, or continues to need occupational therapy. The patient is under my care, and I have initiated the establishment of the plan of care. The patient will be followed by a physician who will periodically review the plan of care.
== END 2020-09-19 18:22 | disposition home health service (06) | DRG 69 ==
LOC: HO.ED 09:56 → HO.EDOVER 15:02 → HO.IMC 23:04
PROVIDERS: Admitting Provider Internal Medicine; Emergency Provider Emergency Medicine Emergency Medical Services; PCP Internal Medicine; Visit Provider Internal Medicine
DX: G45.9 Transient cerebral ischemic attack, unspecified (principal); I72.0 Aneurysm of carotid artery; R91.1 Solitary pulmonary nodule; R56.9 Unspecified convulsions; Z87.891 Personal history of nicotine dependence; Z99.81 Dependence on supplemental oxygen; Z20.822 Contact with and (suspected) exposure to COVID-19; Z88.5 Allergy status to narcotic agent; Z88.6 Allergy status to analgesic agent; Z79.82 Long term (current) use of aspirin; Z79.899 Other long term (current) drug therapy; Z66 Do not resuscitate
CPT/HCPCS: 36415; 70450; 70496; 70498; 70551; 71045; 80048; 80061; 82947; 85025; 85610; 87635; 92523; 92610; 93005; 93306; 97110; 97116; 97161; 97165; 97530; 99285; J1200; J2765; Q9967

== ENCOUNTER → 2021-05-26 08:39 | Outpatient (BNVA) | payer MEDICARE, OTHER, SELFPAY | PROVIDERS: PCP Internal Medicine; Visit Provider Nurse Practitioner Family | DX: I67.1 Cerebral aneurysm, nonruptured (principal); I63.81 Other cerebral infarction due to occlusion or stenosis of small artery; R90.82 White matter disease, unspecified; F09 Unspecified mental disorder due to known physiological condition | CPT/HCPCS: 99202 ==

== ENCOUNTER 2021-06-19 08:59 | Outpatient (REF) | payer MEDICARE, OTHER, SELFPAY ==
--- NOTE | 2021-06-26 13:23 | MHC.AU.AHA ---
Adult Audiological Evaluation Date of Visit: 06/19/21 Scientific Programmer Used: Not Applicable Reason for Appointment: Audiologic re-evaluation to monitor hearing levels. Slick has a history of bilateral sensorineural hearing loss, hyperacusis, and tinnitus. He has worn bilateral hearing aids; however, due to health changes, Slick requires use of oxygen. With the use of the cannula, glasses and face mask, the hearing aids will not stay in place so he has not been using any amplification for more than a year. 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 In August 2020, he was hospitalized for a CVA. Previous Hearing Test Results: 04/11/2020 [facility] Mild/moderate low frequency, sloping to moderately-severe high frequency sensorineural hearing loss bilaterally. Speech understanding int he right ear was 76% at 65 dB HL and 96% at 70 dB HL. Left ear speech discrimination was 72% at 70 dB HL Ear History: Bothersome Tinnitus/Ringing/Noises in Ears: Both Ears History of occupational noise exposure?: Yes Medical History: Medical History: Cancer, Significant Hyperacusis, Rheumatoid Arthritis Allergies: Morphine, Cefazolin, Gatifloxacin, Levofloxacin Medication List: Trelegy, Albuterol, Aspirin, Restasis, Tamsulosin, Omeprazol, Miralax, Citrucel, Prednisone, Benedryl, Melatonin, Zyrtec, Vitamin C and D3. As needed medications: Fluocinonide, Tylenol, Eucerine, Trimcinolone, Budesinide Hearing Instrument History- Right Ear: Tearoom Host/Hostess: Phonak Model: Bolero V 90 M - NO LONGER USING Hearing Instrument History- Left Ear: Tearoom Host/Hostess: Phonak Model: Bolero V 90 M - NO LONGER USING Otoscopy: Right Ear: Unremarkable Left Ear: Unremarkable Tympanometry: Not performed at today's visit as previous testing has shown normal middle ear function bilaterally. Hearing Evaluation: Transducer(s) Used: Insert Earphones Bone Conduction Method: Conventional Audiometry Stimuli Used: Pure Tones Right Ear: Description of Hearing: Moderate sloping to moderately-severe sensorineural hearing loss Left Ear: Description of Hearing: Moderate sloping to moderately-severe sensorineural hearing loss Speech Recognition Threshold (SRT): Method Used: Monitored Live Voice Stimuli Used: Spondee Words Right Ear: 45 dB HL Left Ear: 45 dB HL Word Discrimination: Method: Recorded Lists Word Lists Used: NU-6 Right Ear: 88% at 75 dB HL Left Ear: 80% at 75 dB HL Comparison: Compared to the most recent evaluation: Hearing is stable. Recommendations: Audiological re-evaluation in one year. Will send a reminder card. Discussed possible trial with custom Rz-Dri-Viiow hearing aids since unable to use the [id number] aids with the cannula and glasses. Diagnosis: Primary Diagnosis: H90.3 Bilateral Sensorineural Hearing Loss Secondary Diagnosis: H93.13 Tinnitus, Bilateral Services Performed: Comprehensive Audiological Evaluation (CPT 14506) Signature: Provider: Lesvia Payton, CHERRI-A
== END 2021-06-19 09:00 | disposition home or self-care (01) ==
LOC: HO.SH 08:59
PROVIDERS: Visit Provider Internal Medicine
DX: Z01.118 Encounter for examination of ears and hearing with other abnormal findings (principal); H90.3 Sensorineural hearing loss, bilateral; H93.13 Tinnitus, bilateral
CPT/HCPCS: 92557

== ENCOUNTER 2021-06-20 00:32 | Emergency (ER) | payer MEDICARE, OTHER, SELFPAY ==
--- NOTE | ~2021-06-20 | XR_ITS ---
EXAMINATION: XR CHEST CLINICAL INFORMATION: Shortness of breath COMPARISON: 09/18/2020 TECHNIQUE: Frontal view of the chest was obtained. FINDINGS: Cardiac leads overlie the chest. The lungs are well expanded. No consolidation, edema, or effusion. There is known emphysema. Scarring at the right apex. No pneumothorax. The cardiomediastinal silhouette is within normal limits. XR/XR chest 1V IMPRESSION: No acute pulmonary finding. Emphysema.
--- NOTE | ~2021-06-20 | CT_ITS ---
EXAMINATION: CT HEAD WITHOUT CONTRAST CLINICAL INFORMATION: Headache. Confusion. History of cerebrovascular accident. COMPARISON: Brain MRI from 09/18/2020. TECHNIQUE: Contiguous axial imaging was performed from the skull base to vertex without intravenous administration of contrast. This CT examination was performed using dose optimization techniques as appropriate, variously including the following: *Automated exposure control. *Adjustment of mA and/or kV according to patient size (this includes techniques or standardized protocols for targeted exams where dose is matched to indication/reason for exam; i.e. extremities or head). *Use of iterative reconstruction technique. DLP: 652 mGy-cm FINDINGS: There is no evidence of acute intracranial hemorrhage or edematous territorial infarction. Scattered and partially confluent hypoattenuation in the periventricular and deep white matter are consistent with moderate microangiopathy. [place]-white matter differentiation is preserved. Proportional prominence of the ventricles and sulcal spaces. No evidence for obstructive hydrocephalus. No abnormal mass effect or midline shift. No extra-axial fluid collections. Calcific atherosclerotic disease of the intracranial internal carotid and vertebral arteries. No hyperdense vessel sign. No acute soft tissue or osseous abnormalities. The mastoid air cells and paranasal sinuses are clear. Bilateral lens extractions. Moderate degenerative arthropathy of the temporomandibular joints. CT/CT head for stroke IMPRESSION: 1. No evidence of acute intracranial hemorrhage or edematous territorial infarction. 2. Moderate underlying microangiopathy and generalized cerebral volume loss.
[2021-06-20 00:38] VITALS: BP 190/89; BP 194/90; PULSE 79; PULSE 80; RESP 16; TEMP 36.5; O2SAT 98; O2SAT 99; BMI 22.8
--- NOTE | 2021-06-20 00:38 | ECG_ITS ---
Test Reason : STROKE Blood Pressure : / mmHG Vent. Rate : 077 BPM Atrial Rate : 077 BPM P-R Int : 146 ms QRS Dur : 078 ms QT Int : 358 ms P-R-T Axes : 062 035 027 degrees QTc Int : 405 ms Poor data quality Normal sinus rhythm Nonspecific ST abnormality Abnormal ECG When compared with ECG of 18-SEP-2020 10:58, No significant change was found Referred By: Jean Claude Tucker Electronically Signed By:TERRANCE LANDRUM MD
--- NOTE | 2021-06-20 01:04 | ED_ITS ---
HPI - General Adult General Chief complaint: Stroke Stated complaint: headache, stroke alert Time Seen by Provider: 06/20/21 00:37 Source: patient Mode of arrival: EMS Limitations: no limitations History of Present Illness HPI narrative: Patient history of COPD oxygen dependent on 2 L 24 hours apparently working all day today had a busy day put some furniture on the back fell short of breath short winded took inhaler then had headache which did not go away so call 911 patient spoke to his son and on the phone son thought that he was little confused. On EMS arrival patient was alert oriented x3 no focal deficit fast test was negative for stroke no nausea no vomiting patient feels better now no history of any black stools no abdominal pain Related Data Home Medications Medication Instructions Recorded Confirmed acetaminophen 325 mg tablet 650 mg PO Q6H PRN 09/18/20 05/26/21 albuterol sulfate 90 mcg/actuation 2 puff PO Q6H PRN 09/18/20 05/26/21 aerosol inhaler budesonide 3 mg 1 cap PO DAILY PRN 09/18/20 05/26/21 capsule,delayed,extended release cyclosporine 0.05 % eye drops in a 1 drp OPHTHALMIC (EYE) BID 09/18/20 05/26/21 dropperette (Restasis) fluocinonide 0.05 % topical cream 1 appl TOPICAL BEDTIME 09/18/20 05/26/21 omeprazole 40 mg capsule,delayed 1 cap PO DAILY 09/18/20 05/26/21 release tamsulosin 0.4 mg capsule 1 cap PO BEDTIME 09/18/20 05/26/21 triamcinolone acetonide 0.1 % 1 appl TOPICAL BID PRN 09/18/20 05/26/21 topical cream umeclidinium 62.5 mcg-vilanterol 1 puff PO DAILY 09/18/20 09/18/20 25 mcg/actuation powdr for inhalation (Anoro Ellipta) cetirizine 5 mg tablet 5 mg PO DAILY 09/19/20 05/26/21 diphenhydramine HCl 25 mg capsule 25 mg PO BEDTIME 09/19/20 05/26/21 (Benadryl) melatonin 10 mg tablet 10 mg PO BEDTIME 09/19/20 05/26/21 ascorbate calcium (vitamin C) 500 500 mg PO DAILY 05/26/21 05/26/21 mg tablet cholecalciferol (vitamin D3) 25 25 mcg PO DAILY 05/26/21 05/26/21 mcg (1,000 unit) capsule fluticasone fur. 100 mcg-umeclid 1 ea INHALATION DAILY 05/26/21 05/26/21 62.5 mcg-vilant 25 mcg inhalat.powder (Trelegy Ellipta) methylcellulose (laxative) 500 mg 500 mg PO DAILY 05/26/21 05/26/21 tablet (Citrucel) polyethylene glycol 3350 17 17 g PO DAILY 05/26/21 05/26/21 gram/dose oral powder (Miralax) prednisone 1 mg tablet mg PO 05/26/21 05/26/21 prednisone 5 mg tablet 5 mg PO QAM 05/26/21 05/26/21 Previous Rx's Medication Instructions Recorded aspirin 81 mg tablet,delayed 81 mg PO DAILY #30 tab 09/19/20 release amlodipine 5 mg tablet (Norvasc) 5 mg PO DAILY #30 tab 06/20/21 Allergies Allergy/AdvReac Type Severity Reaction Status Date / Time morphine [MORPHINE] Allergy Severe HYPOTENSION Verified 05/26/21 09:04 aspirin [ASA] Allergy Intermediate PETTICHIAE Verified 09/19/20 01:02 cefazolin [From ANCEF] Allergy Unknown Rash Verified 05/26/21 09:04 gatifloxacin [From ZYMAR] Allergy Unknown Rash Verified 09/19/20 01:02 levofloxacin [From LEVAQUIN] Allergy Unknown Rash Verified 05/26/21 09:04 Review of Systems Review of Systems: Yes all other systems are reviewed and are negative PMFSH Past Medical History Medical History BPH (benign prostatic hyperplasia) COPD (chronic obstructive pulmonary disease) Degenerative joint disease involving multiple joints Fracture of calcaneus GERD without esophagitis IBS (irritable bowel syndrome) Mixed hyperlipidemia Pemphigoid Presbycusis of both ears Rheumatoid arthritis Small cell carcinoma Varicose veins of both lower extremities Family History Family History Brother Colon cancer Mother Colon cancer Father Prostate cancer Social History Social History Household Members: None Housing: House Do you presently have visiting nurse or other home services: Yes ([employer]) Alcohol intake: never Patient Tobacco Use Status: Never used Tobacco Advance Directives: No Advance Directives Information Provided: Yes service: No Current occupational status: retired Physical Exam ED Vital Signs: Vital Signs - 24 hr 06/20/21 00:38 06/20/21 01:45 Temperature 97.7 F Pulse Rate 79 79 Respiratory Rate 16 18 Blood Pressure 190/89 H 181/93 H Pulse Oximetry 99 99 BMI result Body Mass Index 22.8 Appearance: Alert. Oriented X3. No acute distress. Eyes: PERRLA, No Nystagmus ENT: Pharynx normal. Oral Mucosa moist Neck: Normal inspection. Neck supple. CVS: Normal heart rate and rhythm. Pulses normal. Respiratory: No respiratory distress. Equal air entry bilateral, no wheezing/rales/rhonchi Abdomen: Soft and nontender. Bowel sounds are present, no mass palpable, no CVA tenderness Rectal; brown stool guaiac negative Skin: Skin warm and dry. Normal skin color. Normal skin turgor. Extremities: No lower extremity edema. No calf tenderness Neuro: Oriented X 3. No motor deficit. No sensory deficit.No cerebellar signs , cranial nerves II-XII intact speech normal NIH Stroke Scale Internal: Initial- Upon Arrival Level of Consciousness: Alert Level of Consciousness Questions: Answers both questions correctly Level of Consciousness Commands: Performs both tasks correctly Best Gaze: Normal Visual: No visual loss Facial Palsy: Normal Motor Arm (Right): No drift Motor Arm (Left): No drift Motor Leg (Right): No drift Motor Leg (Left): No drift Limb Ataxia: Absent Sensory: Normal Best Language: No aphasia Dysarthia: Normal Extinction and Inattention: No abnormality Score: 0 Course Course Course Narrative: Patient came with increased shortness of breath slight headache before arrival apparently patient is on oxygen and working hard all day likely patient has drop in oxygen causing exhaustion at this time workup is negative will discharge patient home start him on amlodipine 5 mg daily Medical Decision Making [facility] Narrative Medical decision making narrative: Patient had CT was negative labs were drawn from the IV line likely diluted patient does not look pale will repeat H&H no focal deficit at this time patient resting well as at his baseline speech is normal chest x-ray negative for infiltrate or effusion discharge patient home Lab Data Lab results reviewed: Yes I reviewed the patient's lab results. Result diagrams: 06/20/21 01:12 06/20/21 00:35 Labs: Lab Results 06/20/21 06/20/21 06/20/21 Range/Units 00:35 00:35 00:35 WBC Cancelled RBC Cancelled Hgb Cancelled Hct Cancelled MCV Cancelled MCH Cancelled MCHC Cancelled RDW Cancelled Plt Count Cancelled MPV Cancelled Immature Gran % (Auto) Cancelled Neut % (Auto) Cancelled Lymph % (Auto) Cancelled [place] % (Auto) Cancelled Eos % (Auto) Cancelled Baso % (Auto) Cancelled Lymph # (Auto) Cancelled [place] # (Auto) Cancelled Eos # (Auto) Cancelled Baso # (Auto) Cancelled Abs Immat Gran (auto) Cancelled Absolute Neuts (auto) Cancelled Absolute Nucleated RBC Cancelled Nucleated RBC % (auto) Cancelled PT 11.0 (9.9-13.0) SEC INR 1.0 (0.9-1.1) Sodium 138 (135-145) mmol/L Potassium 3.9 (3.3-5.1) mmol/L Chloride 101 (96-108) mmol/L Carbon Dioxide 30 H (22-29) mmol/L Anion Gap 11 L (12-20) BUN 15 (9-16) mg/dL Creatinine 0.94 (0.5-1.4) mg/dL Estim Creat Clear Calc 65.1 Estimated GFR > 60 Random Glucose 91 (60-115) mg/dL Calcium 9.6 (8.4-10.2) mg/dL Total Bilirubin 0.7 (0.0-1.0) mg/dL AST 16 (5-37) U/L ALT 15 (0-40) U/L Alkaline Phosphatase 72 (39-117) U/L Total Creatine Kinase 128 (38-174) U/L Troponin I High Sens (<3.5-35.0) ng/L Total Protein 6.5 (6.5-8.0) g/dL Albumin 4.3 (3.5-5.0) g/dL Stool Occult Blood (NEGATIVE) COVID-19 (QUINN) (Negative) COVID-19 Clin Com 06/20/21 06/20/21 06/20/21 Range/Units 00:35 00:35 01:12 WBC 8.1 RBC 4.45 L Hgb 13.8 L Hct 41.0 L MCV 92.8 MCH 30.8 MCHC 33.2 RDW 13.6 Plt Count 245 MPV 9.5 Immature Gran % (Auto) 0.4 Neut % (Auto) 71.4 Lymph % (Auto) 12.6 L [place] % (Auto) 12.6 H Eos % (Auto) 2.6 Baso % (Auto) 0.4 Lymph # (Auto) 1.0 L [place] # (Auto) 1.0 Eos # (Auto) 0.2 Baso # (Auto) 0.0 Abs Immat Gran (auto) 0.03 Absolute Neuts (auto) 5.8 Absolute Nucleated RBC 0.000 Nucleated RBC % (auto) 0.0 PT (9.9-13.0) SEC INR (0.9-1.1) Sodium (135-145) mmol/L Potassium (3.3-5.1) mmol/L Chloride (96-108) mmol/L Carbon Dioxide (22-29) mmol/L Anion Gap (12-20) BUN (9-16) mg/dL Creatinine (0.5-1.4) mg/dL Estim Creat Clear Calc Estimated GFR Random Glucose (60-115) mg/dL Calcium (8.4-10.2) mg/dL Total Bilirubin (0.0-1.0) mg/dL AST (5-37) U/L ALT (0-40) U/L Alkaline Phosphatase (39-117) U/L Total Creatine Kinase (38-174) U/L Troponin I High Sens 4.4 (<3.5-35.0) ng/L Total Protein (6.5-8.0) g/dL Albumin (3.5-5.0) g/dL Stool Occult Blood (NEGATIVE) COVID-19 (QUINN) Negative (Negative) COVID-19 Clin Com See Note 06/20/21 Range/Units 01:16 WBC RBC Hgb Hct MCV MCH MCHC RDW Plt Count MPV Immature Gran % (Auto) Neut % (Auto) Lymph % (Auto) [place] % (Auto) Eos % (Auto) Baso % (Auto) Lymph # (Auto) [place] # (Auto) Eos # (Auto) Baso # (Auto) Abs Immat Gran (auto) Absolute Neuts (auto) Absolute Nucleated RBC Nucleated RBC % (auto) PT (9.9-13.0) SEC INR (0.9-1.1) Sodium (135-145) mmol/L Potassium (3.3-5.1) mmol/L Chloride (96-108) mmol/L Carbon Dioxide (22-29) mmol/L Anion Gap (12-20) BUN (9-16) mg/dL Creatinine (0.5-1.4) mg/dL Estim Creat Clear Calc Estimated GFR Random Glucose (60-115) mg/dL Calcium (8.4-10.2) mg/dL Total Bilirubin (0.0-1.0) mg/dL AST (5-37) U/L ALT (0-40) U/L Alkaline Phosphatase (39-117) U/L Total Creatine Kinase (38-174) U/L Troponin I High Sens (<3.5-35.0) ng/L Total Protein (6.5-8.0) g/dL Albumin (3.5-5.0) g/dL Stool Occult Blood NEGATIVE (NEGATIVE) COVID-19 (QUINN) (Negative) COVID-19 Clin Com ECG Data Attestation: I personally reviewed and interpreted this ECG as follows: Interpretation: Normal sinus rhythm heart rate 77 beats per minute normal intervals normal axis no acute ST-T changes no acute ischemia Discharge Plan Discharge Clinical Impression: Chronic respiratory failure with hypoxia Patient Disposition: Home, Self-Care Instructions: Hypertension (ED), Chronic Respiratory Failure (DC) Additional Instructions: Do Not exert yourself too much, use oxygen all the time Start taking blood pressure medicine and follow-up with your PCP Normal blood pressure should be less than 130/80 Prescriptions: New amlodipine [Norvasc] 5 mg tablet 5 mg PO DAILY Qty: 30 0RF No Action omeprazole 40 mg capsule,delayed release(DR/EC) 1 cap PO DAILY 0RF tamsulosin 0.4 mg capsule 1 cap PO BEDTIME 0RF fluocinonide 0.05 % cream 1 appl topical BEDTIME 0RF Restasis 0.05 % dropperette 1 drp ophthalmic (eye) BID 0RF Anoro Ellipta 62.5-25 mcg/actuation blister with device 1 puff PO DAILY 0RF acetaminophen 325 mg Tablet 650 mg PO Q6H PRN (Reason: Pain) 0RF triamcinolone acetonide 0.1 % cream 1 appl topical BID PRN (Reason: Rash) 0RF budesonide 3 mg capsule,delayed,extend.release 1 cap PO DAILY PRN (Reason: Diarrhea) 0RF albuterol sulfate 90 mcg/actuation HFA aerosol inhaler 2 puff PO Q6H PRN (Reason: wheezing) 0RF cetirizine 5 mg Tablet 5 mg PO DAILY 0RF diphenhydramine HCl [Benadryl] 25 mg Capsule 25 mg PO BEDTIME 0RF melatonin 10 mg Tablet 10 mg PO BEDTIME 0RF aspirin 81 mg Tablet,Delayed Release (Dr/Ec) 81 mg PO DAILY Qty: 30 0RF prednisone 5 mg tablet 5 mg PO QAM 0RF prednisone 1 mg tablet PO 0RF Trelegy Ellipta 100-62.5-25 mcg blister with device 1 ea inhalation DAILY 0RF Citrucel 500 mg tablet 500 mg PO DAILY 0RF polyethylene glycol 3350 [Miralax] 17 gram/dose powder 17 g PO DAILY 0RF ascorbate calcium (vitamin C) 500 mg tablet 500 mg PO DAILY 0RF cholecalciferol (vitamin D3) 25 mcg (1,000 unit) capsule 25 mcg PO DAILY 0RF
[2021-06-20 01:07] LABS: Alanine Aminotransferase 15 U/L (0-40); Albumin Level 4.3 g/dL (3.5-5.0); Alkaline Phosphatase 72 U/L (39-117); Anion Gap 11 (12-20); Aspartate Amino Transferase 16 U/L (5-37); Bilirubin Total 0.7 mg/dL (0.0-1.0); Blood Urea Nitrogen 15 mg/dL (9-16); Calcium 9.6 mg/dL (8.4-10.2); Carbon Dioxide 30 mmol/L (22-29); Chloride 101 mmol/L (96-108); Creatinine Clr Calc Pharmacy 65.1; Estimated Glomerular Filt Rate > 60; Glucose Random 91 mg/dL (60-115); Potassium 3.9 mmol/L (3.3-5.1); Total Protein 6.5 g/dL (6.5-8.0)
[2021-06-20 01:10] LABS: Troponin-I High Sensitivity 4.4 ng/L (<3.5-35.0)
[2021-06-20 01:12] LABS: COVID-19 Test Negative (Negative)
[2021-06-20 01:18] LABS: Hemoglobin 13.8 g/dl (14.0-18.0)
[2021-06-20 01:26] LABS: MANUAL DIFF FLAG NO
[2021-06-20 01:27] LABS: OBS Int Ctl Valid YES; OBS1 NEGATIVE (NEGATIVE)
[2021-06-20 01:28] LABS: Basophils Percent Auto 0.4 % (0-2); Eosinophils Absolute Auto 0.2 X10*3/uL (0.0-0.4); Eosinophils Percent Auto 2.6 % (0-4); Imm Gran Abs Auto 0.03 X10*3/uL (0.00-0.03); Imm Gran Pct Auto 0.4 % (0.0-0.4); Lymphocytes Percent Auto 12.6 % (20-40); Mean Corpuscular HGB Conc 33.2 g/dl (31.0-36.0); Mean Corpuscular Hemoglobin 30.8 pg (27.0-33.0); Mean Corpuscular Volume 92.8 fL (80.0-98.0); Mean Platelet Volume 9.5 fL (9.4-12.4); Monocytes Percent Auto 12.6 % (2-11); Neutrophils Absolute Auto 5.8 x10*3/uL (2.0-8.3); Neutrophils Percent Auto 71.4 % (45-73); Platelet Count 245 X10*3/uL (160-400); Red Blood Count 4.45 X10*6/uL (4.60-5.80); Red Cell Distribution Width 13.6 % (11.0-16.0); White Blood Count 8.1 X10*3/uL (4.8-10.8)
[2021-06-20 01:45] VITALS: BP 181/93; PULSE 79; RESP 18; O2SAT 99
[2021-06-20] MEDS: amLODIPine Besylate 5 MG TABLET PO (01:45)
[2021-06-20 02:00] VITALS: BP 175/83; PULSE 72; RESP 15; TEMP 36.6
[2021-06-20 03:15] LABS: Sodium 138 mmol/L (135-145)
--- NOTE | 2021-06-20 03:50 | PC.NURSE ---
Son Hakeem calling, stating pt requires oxygen for transportation. Son concerned as he lives an hour away, requesting medical transportation home. Son to meet pt and EMS @ the house. Son requesting this RN call him with an ETA due to his distance away, this RN calling multiple times however line noted to be busy each time. [phone]
[2021-06-20 05:44] VITALS: BP 162/77; PULSE 79; RESP 16; O2SAT 98
[2021-06-20 06:00] VITALS: BP 165/78; PULSE 75; RESP 16; TEMP 36.6; O2SAT 97
== END 2021-06-20 07:52 | disposition home or self-care (01) ==
PROVIDERS: Emergency Provider Internal Medicine; PCP Internal Medicine
DX: J96.11 Chronic respiratory failure with hypoxia (principal); R51.9 Headache, unspecified; Z20.822 Contact with and (suspected) exposure to COVID-19; Z79.899 Other long term (current) drug therapy
CPT/HCPCS: 36415; 70450; 71045; 80053; 82272; 82550; 84484; 85014; 85018; 85025; 85610; 87635; 93005; 99284

== ENCOUNTER 2021-09-14 09:54 | Outpatient (REF) | payer SELFPAY ==
--- NOTE | 2021-09-14 14:28 | MHC.AU.HAS ---
Hearing Aid Evaluation Date of Visit: 09/14/21 Historical Information: Description of Hearing: Bilateral moderate to moderately severe sensorineural hearing loss Current personal amplification information, if applicable: Binaural Phonak Bolero V 90 M slim tube BTE Left 2015 and Right 2017 Summary: Patient is having difficulty using BTE aids as he has to use nasal cannula at all times, glasses and face mask. Wants to try custom ITC style. Discussed technology levels. PATIENT JUST LEARNED HIS CANCER HAS RETURNED AND LIKELY HAS SPREAD TO LUNGS AND BRAIN. HAVING FURTHER SCANS THIS WEEK. WILL CALL TO DISCUSS WHICH LEVEL OF TECHNOLOGY BASED ON HIS RESULTS AND IF HIS ACTIVITY LEVEL DECREASES. Hearing Aid Prescription: Based on the individual?s shared listening needs, communication environments, dexterity, desire for connectivity, and personal preferences, the following prescription for amplification has been made: Right ear: Quality Control Tech: Phonak Model: Virto P 312. Discussed level 50 vs 90 Battery Size: 312 Left ear: Left ear prescription to be same as Right Hearing Aid above: Quality Control Tech: Phonak Model: Virto P 312. Discussed level 50 vs 90 Battery Size: 312 Primary Diagnosis: H90.3 Bilateral Sensorineural Hearing Loss Secondary Diagnosis: H93.13 Tinnitus, Bilateral Signature: Provider: Mary Payton, CCC-A
== END 2021-09-14 09:55 | disposition home or self-care (01) ==
LOC: HO.HAP 09:54
PROVIDERS: Visit Provider Internal Medicine
DX: Z13.89 Encounter for screening for other disorder (principal)

== ENCOUNTER → 2021-09-22 08:47 | Outpatient (BNVA) | payer MEDICARE, OTHER, SELFPAY | PROVIDERS: PCP Internal Medicine; Visit Provider Nurse Practitioner Family | DX: F09 Unspecified mental disorder due to known physiological condition (principal); R90.82 White matter disease, unspecified | CPT/HCPCS: 99212 ==

== ENCOUNTER 2021-10-08 11:22 | Outpatient (REF) | payer SELFPAY ==
--- NOTE | 2021-10-08 12:54 | MHC.AU.MED ---
Medical Clearance for Hearing Instrumentation Date: 10/08/21 Patient Name: Slick Cardona Date of : 1940 Primary Care Provider: Referring Provider: Kika Alcala MD We have seen your patient on 10/08/21 and have determined that they are a candidate for amplification (See accompanying report). Specifically, they would benefit from: Hearing aid use in both ears There is a statute that addresses Medical Evaluation Requirements prior to fitting a patient with a hearing aid. According to [place] statute 265 CMR:6.03(1), (a) General. Except as provided in 265 CMR 6.03(1)(b), a hearings reporter shall not sell a hearing aid unless the prospective user has presented to the hearings reporter a written statement signed by a licensed physician that states that the patient's hearing loss has been medically evaluated and the patient may be considered a candidate for a hearing aid. The medical evaluation must have taken place within the preceding six months. Please note: Due to the [place] Statute referenced above, we cannot accept a signature other than that of a licensed physician. CASE OPERATOR and PA signatures cannot be accepted. I am in agreement with the above recommendation. There is no medical contraindication for hearing instrumentation. Physician Signature Date Physician Name (Printed)
== END 2021-10-08 11:23 | disposition home or self-care (01) ==
LOC: HO.HAP 11:22
PROVIDERS: Visit Provider Internal Medicine
DX: Z46.1 Encounter for fitting and adjustment of hearing aid (principal); H90.3 Sensorineural hearing loss, bilateral
CPT/HCPCS: 92591; V5259

== ENCOUNTER 2021-10-13 13:09 | Outpatient (REF) | payer SELFPAY | END 2021-10-13 13:10 | disposition home or self-care (01) | LOC: HO.HAP 13:09 | PROVIDERS: Visit Provider Internal Medicine | DX: Z13.89 Encounter for screening for other disorder (principal) ==

== ENCOUNTER 2021-11-03 10:04 | Outpatient (REF) | payer SELFPAY | END 2021-11-03 10:05 | disposition home or self-care (01) | LOC: HO.HAP 10:04 | PROVIDERS: Visit Provider Internal Medicine | DX: Z13.89 Encounter for screening for other disorder (principal) ==

== ENCOUNTER 2022-05-18 12:30 | Outpatient (REF) | payer SELFPAY | END 2022-05-18 12:31 | disposition home or self-care (01) | LOC: HO.HAP 12:30 | PROVIDERS: Visit Provider Internal Medicine | DX: Z13.89 Encounter for screening for other disorder (principal) ==

== ENCOUNTER 2023-05-23 00:36 | Inpatient (IN) | payer MEDICARE, OTHER, SELFPAY ==
[2023-05-23] VITALS (10 sets, daily range): BP systolic 123–169; BP diastolic 58–90; PULSE 81–100; RESP 16–24; TEMP 36.9–37.6; O2SAT 93–97; BMI 21.8
--- NOTE | ~2023-05-23 | XR_ITS ---
EXAMINATION: XR CHEST CLINICAL INFORMATION: Cough and shortness of breath. COMPARISON: 06/20/2021 TECHNIQUE: Frontal view of the chest was obtained. FINDINGS: The cardiomediastinal silhouette is stable. There is no focal lung consolidation or pleural effusion. The bony structures and soft tissues are unremarkable. XR/XR chest 1V IMPRESSION: No acute cardiopulmonary process.
--- NOTE | 2023-05-23 01:17 | ED.GENADULT ---
HPI - General Adult General Chief complaint: Upper Respiratory Symptoms Stated complaint: SOB Time Seen by Provider: 05/23/23 01:03 History of Present Illness HPI narrative: The patient is an 82-year-old male with chronic lung disease on chronic home oxygen. He says that over the last several days he felt that he was struggling with cold symptoms. Today he felt worse with an increasing sense of shortness of breath, chills, and a sense of increased wheezing and abnormal breath sounds. Ultimately he called an ambulance this evening and was brought to the hospital. Related Data Home Medications Medication Instructions Recorded Confirmed acetaminophen 325 mg tablet 650 mg PO Q6H PRN Pain 09/18/20 09/22/21 albuterol sulfate 90 mcg/actuation 2 puff PO Q6H PRN wheezing 09/18/20 09/22/21 aerosol inhaler budesonide 3 mg 1 cap PO DAILY PRN Diarrhea 09/18/20 09/22/21 capsule,delayed,extended release cyclosporine 0.05 % eye drops in a 1 drp ophthalmic (eye) BID 09/18/20 09/22/21 dropperette (Restasis) fluocinonide 0.05 % topical cream 1 appl topical BEDTIME 09/18/20 09/22/21 omeprazole 40 mg capsule,delayed 1 cap PO DAILY 09/18/20 09/22/21 release tamsulosin 0.4 mg capsule 1 cap PO BEDTIME 09/18/20 09/22/21 triamcinolone acetonide 0.1 % 1 appl topical BID PRN Rash 09/18/20 05/26/21 topical cream umeclidinium 62.5 mcg-vilanterol 1 puff PO DAILY 09/18/20 09/18/20 25 mcg/actuation powdr for inhalation (Anoro Ellipta) cetirizine 5 mg tablet 5 mg PO DAILY 09/19/20 05/26/21 diphenhydramine HCl 25 mg capsule 25 mg PO BEDTIME 09/19/20 09/22/21 (Benadryl) melatonin 10 mg tablet 10 mg PO BEDTIME 09/19/20 09/22/21 ascorbate calcium (vitamin C) 500 500 mg PO DAILY 05/26/21 09/22/21 mg tablet cholecalciferol (vitamin D3) 25 25 mcg PO DAILY 05/26/21 09/22/21 mcg (1,000 unit) capsule fluticasone fur. 100 mcg-umeclid 1 ea inhalation DAILY 05/26/21 09/22/21 62.5 mcg-vilant 25 mcg inhalat.powder (Trelegy Ellipta) methylcellulose (laxative) 500 mg 500 mg PO DAILY 05/26/21 09/22/21 tablet (Citrucel) polyethylene glycol 3350 17 17 g PO DAILY 05/26/21 09/22/21 gram/dose oral powder (Miralax) prednisone 1 mg tablet mg PO 05/26/21 05/26/21 prednisone 5 mg tablet 5 mg PO QAM 05/26/21 09/22/21 losartan 25 mg tablet 25 mg PO DAILY 09/22/21 09/22/21 Previous Rx's Medication Instructions Recorded aspirin 81 mg tablet,delayed 81 mg PO DAILY #30 tabs 09/19/20 release amlodipine 5 mg tablet (Norvasc) 5 mg PO DAILY #30 tabs 06/20/21 Allergies Allergy/AdvReac Type Severity Reaction Status Date / Time morphine [MORPHINE] Allergy Severe HYPOTENSION Verified 09/22/21 08:56 aspirin [ASA] Allergy Intermediate PETTICHIAE Verified 09/22/21 08:56 cefazolin [From ANCEF] Allergy Unknown Rash Verified 09/22/21 08:56 gatifloxacin [From ZYMAR] Allergy Unknown Rash Verified 09/22/21 08:56 levofloxacin [From LEVAQUIN] Allergy Unknown Rash Verified 09/22/21 08:56 Review of Systems Review of Systems: Yes all other systems are reviewed and are negative [facility] Past Medical History Medical History BPH (benign prostatic hyperplasia) COPD (chronic obstructive pulmonary disease) Degenerative joint disease involving multiple joints Fracture of calcaneus GERD without esophagitis IBS (irritable bowel syndrome) Mixed hyperlipidemia Pemphigoid Presbycusis of both ears Rheumatoid arthritis Small cell carcinoma Varicose veins of both lower extremities Family History Family History Brother Colon cancer Mother Colon cancer Father Prostate cancer Social History Social History Household Members: None Housing: House Do you presently have visiting nurse or other home services: Yes ([employer]) Alcohol intake: never Patient Tobacco Use Status: Never used Tobacco Smoked in Last 30 Days: No Use of substances other than those prescribed or required for medical reasons: No Advance Directives: No Advance Directives Information Provided: No service: No Current occupational status: retired Physical Exam ED Vital Signs: Vital Signs - 24 hr 05/23/23 00:52 05/23/23 00:57 05/23/23 01:34 Temperature 99.6 F Pulse Rate 95 90 Respiratory Rate 19 16 Blood Pressure 124/60 Pulse Oximetry 96 97 Oxygen Delivery Method Room Air Nasal Cannula Oxygen Flow Rate 05/23/23 03:30 05/23/23 03:46 05/23/23 07:40 Temperature 98.5 F Pulse Rate 90 92 85 Respiratory Rate 18 24 H 20 Blood Pressure 123/58 L 142/71 H Pulse Oximetry 96 95 Oxygen Delivery Method Nasal Cannula Nasal Cannula Oxygen Flow Rate 2 2 BMI result Body Mass Index 21.8 Const Other: The patient is a very frail looking 82-year-old male who looks quite weak and worn out but not in overt distress. Not frankly toxic. HENMT Other: Face is symmetrical. Mucous membranes moist Eyes Other: Pupils are round equal, conjunctivae clear Neck Other: No obvious JVD, no adenopathy Resp Other: Markedly diminished air entry bilaterally, slight wheezes. Cardio Rate: regular rate Rhythm: regular rhythm Heart sounds: S1 normal heart sound present and S2 normal heart sound present GI Other: Abdomen is soft and nontender Skin Other: The skin is pale and dry Neuro Other: The patient is awake and alert with a clear mental status. No obvious cranial nerve deficit. He seems generally weak and quite frail but has no focal findings. Extrem Other: The patient has a brace on his right lower leg. No calf swelling or tenderness. Medications Administered Discontinued Medications Generic Name Dose Route Start Last Admin Trade Name Freq PRN Reason Stop Dose Admin Albuterol/Ipratropium 3 ml 05/23/23 01:19 05/23/23 01:31 Albuterol/Iprat 2.5/0.5mg 3 Ml Ampul.Neb INHALE 05/23/23 01:20 3 ml ONCE ONE Administration Albuterol/Ipratropium 3 ml 05/23/23 03:09 05/23/23 03:30 Albuterol/Iprat 2.5/0.5mg 3 Ml Ampul.Neb INHALE 05/23/23 03:10 3 ml ONCE ONE Administration Ceftriaxone Sodium 1 gm/ 50 mls @ 100 mls/hr 05/23/23 03:07 05/23/23 04:48 Sodium Chloride IV 05/23/23 03:36 Infused ONCE ONE Infusion Azithromycin 500 mg/ Sodium 250 mls @ 125 mls/hr 05/23/23 03:08 05/23/23 07:29 Chloride IV 05/23/23 05:07 Infused ONCE ONE Infusion Methylprednisolone Sodium Succinate 60 mg 05/23/23 03:07 05/23/23 03:56 Methylprednisolone Sod Succ 125 Mg/2 Ml Vial IVPUSH 05/23/23 03:08 60 mg ONCE ONE Administration Medical Decision Making Medical Decision Making [facility] Narrative: The patient is an 82-year-old male who was quite frail at baseline. He is on home oxygen. He lives alone. He describes having cold-like symptoms for several days with considerably worse shortness of breath today. He has been afebrile, highest temperatures have been 99.8. Describes having chills at home. His white count is 18,000. Chest x-ray was read as no clear infiltrate. Blood cultures were drawn. His lactate is normal. I have some concern the patient might have an occult pneumonia. He was started on ceftriaxone and azithromycin. I believe there is also a component of a COPD exacerbation. Also given methylprednisolone and bronchodilator updraft treatments. Overall although he felt somewhat better he continues to look quite weak and I think given his baseline frail this that hospitalization is reasonable. Lab Data 05/23/23 03:44 05/23/23 02:10 Labs: Lab Results 05/23/23 05/23/23 05/23/23 Range/Units 02:06 02:08 02:10 WBC (4.8-10.8) X10*3/uL RBC (4.60-5.80) X10*6/uL Hgb (14.0-18.0) g/dl Hct (42.0-52.0) % MCV (80.0-98.0) fL MCH (27.0-33.0) pg MCHC (31.0-36.0) g/dl RDW (11.0-16.0) % Plt Count (160-400) X10*3/uL MPV (9.4-12.4) fL Immature Gran % (Auto) (0.0-0.4) % Neut % (Auto) (45-73) % Lymph % (Auto) (20-40) % Forest % (Auto) (2-11) % Eos % (Auto) (0-4) % Baso % (Auto) (0-2) % Lymph # (Auto) (1.2-4.9) X10*3/uL Forest # (Auto) (0.1-1.2) X10*3/uL Eos # (Auto) (0.0-0.4) X10*3/uL Baso # (Auto) (0.0-0.2) X10*3/uL Abs Immat Gran (auto) (0.00-0.03) X10*3/uL Absolute Neuts (auto) (2.0-8.3) x10*3/uL Absolute Nucleated RBC (0.0-0.012) X10*3/uL Nucleated RBC % (auto) (0.0-0.2) /100WBC VBG pH (7.32-7.43) VBG pCO2 mmHg VBG pO2 mmHg VBG HCO3 (22-26) mmol/L VBG O2 Saturation % VBG Base Excess mmol/L Sodium 134 L (135-145) mmol/L Potassium 3.9 (3.3-5.1) mmol/L Chloride 101 (96-108) mmol/L Carbon Dioxide 24 (22-29) mmol/L Anion Gap 13 (12-20) BUN 14 (9-16) mg/dL Creatinine 0.83 (0.5-1.4) mg/dL Estim Creat Clear Calc 67.9 Estimated GFR > 60 Random Glucose 113 (60-115) mg/dL Lactic Acid 0.7 (0.5-2.0) mmol/L Calcium 8.6 D (8.4-10.2) mg/dL Magnesium 1.7 (1.6-2.6) mg/dL Total Bilirubin 0.8 (0.0-1.0) mg/dL AST 22 (5-37) U/L ALT 28 (0-40) U/L Alkaline Phosphatase 92 (39-117) U/L Troponin I High Sens 5.2 (<3.5-35.0) ng/L C-Reactive Protein 1.19 H (< or = 0.50) mg/dL B-Natriuretic Peptide 73 (<100) pg/mL Total Protein 5.9 L (6.5-8.0) g/dL Albumin 3.8 (3.5-5.0) g/dL Ethyl Alcohol < 10 mg/dL Influenza Type A (PCR) (Negative) Influenza Type B (PCR) (Negative) RSV RNA Qual (PCR) (Negative) SARS-CoV-2 RNA (RT-PCR) (Negative) 05/23/23 05/23/23 05/23/23 Range/Units 02:11 02:17 03:44 WBC 18.5 H 18.9 H (4.8-10.8) X10*3/uL RBC 3.94 L 3.99 L (4.60-5.80) X10*6/uL Hgb 12.6 L 12.5 L (14.0-18.0) g/dl Hct 36.6 L 37.4 L (42.0-52.0) % MCV 92.9 93.7 (80.0-98.0) fL MCH 32.0 31.3 (27.0-33.0) pg MCHC 34.4 33.4 (31.0-36.0) g/dl RDW 13.9 13.8 (11.0-16.0) % Plt Count 169 D 165 (160-400) X10*3/uL MPV 9.4 9.3 L (9.4-12.4) fL Immature Gran % (Auto) 0.6 H (0.0-0.4) % Neut % (Auto) 89.8 H (45-73) % Lymph % (Auto) 2.9 L (20-40) % Forest % (Auto) 6.3 (2-11) % Eos % (Auto) 0.2 (0-4) % Baso % (Auto) 0.2 (0-2) % Lymph # (Auto) 0.6 L (1.2-4.9) X10*3/uL Forest # (Auto) 1.2 (0.1-1.2) X10*3/uL Eos # (Auto) 0.0 (0.0-0.4) X10*3/uL Baso # (Auto) 0.0 (0.0-0.2) X10*3/uL Abs Immat Gran (auto) 0.11 H (0.00-0.03) X10*3/uL Absolute Neuts (auto) 17.0 H (2.0-8.3) x10*3/uL Absolute Nucleated RBC 0.000 0.000 (0.0-0.012) X10*3/uL Nucleated RBC % (auto) 0.0 0.0 (0.0-0.2) /100WBC VBG pH 7.49 H (7.32-7.43) VBG pCO2 31 mmHg VBG pO2 91 mmHg VBG HCO3 24 (22-26) mmol/L VBG O2 Saturation 100.0 % VBG Base Excess 1.6 mmol/L Sodium (135-145) mmol/L Potassium (3.3-5.1) mmol/L Chloride (96-108) mmol/L Carbon Dioxide (22-29) mmol/L Anion Gap (12-20) BUN (9-16) mg/dL Creatinine (0.5-1.4) mg/dL Estim Creat Clear Calc Estimated GFR Random Glucose (60-115) mg/dL Lactic Acid (0.5-2.0) mmol/L Calcium (8.4-10.2) mg/dL Magnesium (1.6-2.6) mg/dL Total Bilirubin (0.0-1.0) mg/dL AST (5-37) U/L ALT (0-40) U/L Alkaline Phosphatase (39-117) U/L Troponin I High Sens (<3.5-35.0) ng/L C-Reactive Protein (< or = 0.50) mg/dL B-Natriuretic Peptide (<100) pg/mL Total Protein (6.5-8.0) g/dL Albumin (3.5-5.0) g/dL Ethyl Alcohol mg/dL Influenza Type A (PCR) NEGATIVE (Negative) Influenza Type B (PCR) NEGATIVE (Negative) RSV RNA Qual (PCR) NEGATIVE (Negative) SARS-CoV-2 RNA (RT-PCR) NEGATIVE (Negative) Independent Interpretation I performed an independent interpretation of an: EKG Interpretation: EKG at 07:34 shows normal sinus rhythm at 83 beats per minute. It is an unremarkable EKG with no significant change from previous Discharge Plan Discharge Clinical Impression: Acute exacerbation of chronic obstructive pulmonary disease Patient Disposition: Admitted As Inpatient
[2023-05-23] MEDS: Albuterol/Iprat 2.5/0.5MG 3 ML AMPUL.NEB INHALE ×5 (01:31→19:44)
[2023-05-23 02:18] LABS: Hematocrit 36.6 % (42.0-52.0); Hemoglobin 12.6 g/dl (14.0-18.0); Mean Corpuscular HGB Conc 34.4 g/dl (31.0-36.0); Mean Corpuscular Volume 92.9 fL (80.0-98.0); Mean Platelet Volume 9.4 fL (9.4-12.4); Platelet Count 169 X10*3/uL (160-400); Red Blood Count 3.94 X10*6/uL (4.60-5.80); Red Cell Distribution Width 13.9 % (11.0-16.0); White Blood Count 18.5 X10*3/uL (4.8-10.8)
[2023-05-23 02:19] LABS: Venous Blood Gas Refer to POC result
[2023-05-23 02:24] LABS: VBG Base Excess 1.6 mmol/L; VBG HCO3 24 mmol/L (22-26); VBG pCO2 31 mmHg; VBG pH 7.49 (7.32-7.43); VBG pO2 91 mmHg
[2023-05-23 02:26] LABS: Lactic Acid 0.7 mmol/L (0.5-2.0)
[2023-05-23 02:37] LABS: Troponin-I High Sensitivity 5.2 ng/L (<3.5-35.0)
[2023-05-23 02:41] LABS: B Type Natriuretic Peptide 73 pg/mL (<100)
[2023-05-23 02:44] LABS: Alanine Aminotransferase 28 U/L (0-40); Albumin Level 3.8 g/dL (3.5-5.0); Alkaline Phosphatase 92 U/L (39-117); Anion Gap 13 (12-20); Aspartate Amino Transferase 22 U/L (5-37); Bilirubin Total 0.8 mg/dL (0.0-1.0); Blood Urea Nitrogen 14 mg/dL (9-16); Calcium 8.6 mg/dL (8.4-10.2); Carbon Dioxide 24 mmol/L (22-29); Chloride 101 mmol/L (96-108); Creatinine Clr Calc Pharmacy 67.9; Estimated Glomerular Filt Rate > 60; Ethanol < 10 mg/dL; Glucose Random 113 mg/dL (60-115); Magnesium 1.7 mg/dL (1.6-2.6); Potassium 3.9 mmol/L (3.3-5.1); Sodium 134 mmol/L (135-145); Total Protein 5.9 g/dL (6.5-8.0)
[2023-05-23 02:54] LABS: Influenza A PCR NEGATIVE (Negative); Influenza B PCR NEGATIVE (Negative); Resp Syncy Virus RNA Qual PCR NEGATIVE (Negative); SARS COV2 PCR INHOUSE NEGATIVE (Negative)
[2023-05-23 02:59] LABS: C Reactive Protein 1.19 mg/dL (< or = 0.50)
[2023-05-23] MEDS: methylPREDNISolone Sod Succ 125 MG/2 ML VIAL 60 MG IVPUSH (03:56)
[2023-05-23] MEDS: Azithromycin 500 MG in 0.9 % Sodium Chloride 250 ML 125 MG IV (03:56)
[2023-05-23] MEDS: cefTRIAXone sodium 1 GM in 0.9 % Sodium Chloride 50 ML IV (03:56)
[2023-05-23 04:01] LABS: MANUAL DIFF FLAG NO
[2023-05-23 04:03] LABS: Basophils Percent Auto 0.2 % (0-2); Eosinophils Percent Auto 0.2 % (0-4); Hematocrit 37.4 % (42.0-52.0); Hemoglobin 12.5 g/dl (14.0-18.0); Imm Gran Abs Auto 0.11 X10*3/uL (0.00-0.03); Imm Gran Pct Auto 0.6 % (0.0-0.4); Lymphocytes Absolute Auto 0.6 X10*3/uL (1.2-4.9); Lymphocytes Percent Auto 2.9 % (20-40); Mean Corpuscular HGB Conc 33.4 g/dl (31.0-36.0); Mean Corpuscular Hemoglobin 31.3 pg (27.0-33.0); Mean Corpuscular Volume 93.7 fL (80.0-98.0); Mean Platelet Volume 9.3 fL (9.4-12.4); Monocytes Absolute Auto 1.2 X10*3/uL (0.1-1.2); Monocytes Percent Auto 6.3 % (2-11); Neutrophils Percent Auto 89.8 % (45-73); Platelet Count 165 X10*3/uL (160-400); Red Blood Count 3.99 X10*6/uL (4.60-5.80); Red Cell Distribution Width 13.8 % (11.0-16.0); White Blood Count 18.9 X10*3/uL (4.8-10.8)
--- NOTE | 2023-05-23 07:13 | ECG_ITS ---
Test Reason : sob Blood Pressure : / mmHG Vent. Rate : 083 BPM Atrial Rate : 083 BPM P-R Int : 148 ms QRS Dur : 084 ms QT Int : 378 ms P-R-T Axes : 064 028 057 degrees QTc Int : 444 ms Normal sinus rhythm Normal ECG When compared with ECG of 20-JUN-2021 00:53, No significant change was found Referred By: Mark Coronado Electronically Signed By:Leon Shanks
--- NOTE | 2023-05-23 08:21 | PM.IMHP ---
History of Present Illness Date of Service: 05/23/23 Chief Complaint: Shortness of breath, wheezing 82-year-old male with a history of multiple medical conditions including COPD with chronic respiratory failure, who is on home oxygen at 2 liters per minute and chronic steroid therapy (prednisone) at 5 mg daily, presented with an acute onset of shortness of breath. He had been experiencing increasing shortness of breath over several days, and yesterday, while at his podelxod-vj-brg's, she remarked, I can hear you wheezing. Subsequently, he checked his oxygen saturation and found it had dropped to 87 on 2 liters, with his heart rate reaching the 120s, prompting him to seek medical help. In the ED, his oxygen saturation remained above 90, and his chest X-ray showed no acute findings. His white blood cell count is elevated at 18K, likely due to steroid use. Tests for Flu, RSV, and COVID were negative. He has been treated with nebulized bronchodilators, IV steroids, IV ceftriaxone, and azithromycin, and overall, he feels better. Review of Systems Review of Systems: Gen: no fever Resp: + sob, no cough. +wheezing CV: no chest, no RITTER, no leg edema GI: No n/v, no abd pain Neuro: No confusion Yes all other systems are reviewed and are negative [facility] Medical History Small cell carcinoma Fracture of calcaneus Degenerative joint disease involving multiple joints Rheumatoid arthritis Pemphigoid BPH (benign prostatic hyperplasia) IBS (irritable bowel syndrome) GERD without esophagitis COPD (chronic obstructive pulmonary disease) Varicose veins of both lower extremities Presbycusis of both ears Mixed hyperlipidemia Family History Brother Colon cancer Mother Colon cancer Father Prostate cancer Social History Household Members: None Housing: House Do you presently have visiting nurse or other home services: No Alcohol intake: never Patient Tobacco Use Status: Former Tobacco user Smoked in Last 30 Days: No Use of substances other than those prescribed or required for medical reasons: No Have you been hit, kicked, punched, or otherwise hurt by someone within the past year? If so, by whom?: No Do you feel safe in your current relationship?: No Current Relationship Is there a partner from a previous relationship who is making you feel unsafe now?: No Are you made to feel afraid or neglected: No Advance Directives: No Advance Directives Information Provided: No Nutrition Risks: No Nutritional Risk Poor oral hygiene: No service: No Current occupational status: retired Meds Allergies Allergy/AdvReac Type Severity Reaction Status Date / Time morphine [MORPHINE] Allergy Severe HYPOTENSION Verified 09/22/21 08:56 aspirin [ASA] Allergy Intermediate PETTICHIAE Verified 09/22/21 08:56 cefazolin [From ANCEF] Allergy Unknown Rash Verified 09/22/21 08:56 gatifloxacin [From ZYMAR] Allergy Unknown Rash Verified 09/22/21 08:56 levofloxacin [From LEVAQUIN] Allergy Unknown Rash Verified 09/22/21 08:56 Home Medications Medication Instructions Recorded Confirmed Last Taken Type albuterol sulfate 90 mcg/actuation 2 puff PO Q6H PRN wheezing 09/18/20 05/23/23 Unknown History aerosol inhaler budesonide 3 mg 1 cap PO DAILY PRN Diarrhea 09/18/20 05/23/23 Unknown History capsule,delayed,extended release cyclosporine 0.05 % eye drops in a 1 drp ophthalmic (eye) BID 09/18/20 05/23/23 05/22/23 History dropperette (Restasis) omeprazole 40 mg capsule,delayed 1 cap PO DAILY 09/18/20 05/23/23 05/22/23 History release tamsulosin 0.4 mg capsule 2 cap PO BEDTIME 09/18/20 05/23/23 05/22/23 History cetirizine 5 mg tablet 5 mg PO BID 09/19/20 05/23/23 05/22/23 History ascorbate calcium (vitamin C) 500 500 mg PO DAILY 05/26/21 05/23/23 Unknown History mg tablet cholecalciferol (vitamin D3) 25 25 mcg PO DAILY 05/26/21 05/23/23 05/22/23 History mcg (1,000 unit) capsule methylcellulose (laxative) 500 mg 500 mg PO DAILY 05/26/21 05/23/23 05/22/23 History tablet (Citrucel) polyethylene glycol 3350 17 17 g PO BID 05/26/21 05/23/2305/21/24 History gram/dose oral powder (Miralax) prednisone 5 mg tablet 5 mg PO QAM 05/26/21 05/23/23 05/22/23 History losartan 25 mg tablet 25 mg PO DAILY 09/22/21 05/23/23 05/22/23 History acetaminophen 500 mg tablet 500 mg PO QID PRN Pain 05/23/23 05/23/23 Unknown History apixaban 5 mg tablet (Eliquis) 5 mg PO BID 05/23/23 05/23/23 05/22/23 History atorvastatin 80 mg tablet 80 mg PO DAILY 05/23/23 05/23/23 05/22/23 History fluticasone fur. 200 mcg-umeclid 1 ea inhalation DAILY 05/23/23 05/23/23 05/22/23 History 62.5 mcg-vilant 25 mcg inhalat.powder (Trelegy Ellipta) meclizine 25 mg tablet 25 mg PO TID PRN Nausea 05/23/23 05/23/23 Unknown History melatonin 3 mg tablet 3 mg PO BEDTIME PRN Insomnia 05/23/23 05/23/23 Unknown History nystatin 100,000 unit/gram topical 1 appl topical DAILY PRN Rash 05/23/23 05/23/23 Unknown History powder Physical Exam Vital Signs and Narrative: Vital Signs: Last Vital Signs Temp 98.5 F 05/23/23 03:46 Pulse 85 05/23/23 07:40 Resp 20 05/23/23 07:40 BP 142/71 H 05/23/23 07:40 Pulse Ox 95 05/23/23 07:40 O2 Del Method Nasal Cannula 05/23/23 07:40 O2 Flow Rate 2 05/23/23 07:40 Oxygen Flow Rate 2 05/23/23 00:57 BMI result Body Mass Index 21.8 Const: Other: Constitutional: Alert, in no distress, overweight. Mental Status: Oriented to person, place and time. Eyes: Pupils are equal, round and reactive to light. Ear, Nose and Throat: Oropharynx clear, mucous membranes moist. Ears and nose without eformities. Trachea midline. Respiratory: Clear to auscultation. No wheezing, rales or rhonchi. Cardiovascular: S1 S2 regular. No murmurs, rubs or gallops. Gastrointestinal: Abdomen soft, non-tender, non-distended. Normal bowel sounds.? Neurologic: Cranial nerves II-XII grossly intact. No focal neurological deficits. Moves all extremities spontaneously.? Skin: No rashes or lesions.? Musculoskeletal: No cyanosis or clubbing. Psychiatric: Normal mood and affect? Results Labs 05/23/23 03:44 05/24/23 05:16 Labs: Laboratory Results - last 24 hr 05/23/23 05/23/23 05/23/23 02:06 02:08 02:10 MCV MCH MCHC RDW Plt Count MPV Immature Gran % (Auto) Neut % (Auto) Lymph % (Auto) [place] % (Auto) Eos % (Auto) Baso % (Auto) Lymph # (Auto) [place] # (Auto) Eos # (Auto) Baso # (Auto) Abs Immat Gran (auto) Absolute Neuts (auto) Absolute Nucleated RBC Nucleated RBC % (auto) VBG pH VBG pCO2 VBG pO2 VBG HCO3 VBG O2 Saturation VBG Base Excess Anion Gap 13 Estim Creat Clear Calc 67.9 Estimated GFR > 60 Random Glucose 113 Lactic Acid 0.7 Calcium 8.6 D Magnesium 1.7 Total Bilirubin 0.8 AST 22 ALT 28 Alkaline Phosphatase 92 Troponin I High Sens 5.2 C-Reactive Protein 1.19 H B-Natriuretic Peptide 73 Total Protein 5.9 L Albumin 3.8 Ethyl Alcohol < 10 Influenza Type A (PCR) Influenza Type B (PCR) RSV RNA Qual (PCR) SARS-CoV-2 RNA (RT-PCR) 05/23/23 05/23/23 05/23/23 02:11 02:17 03:44 MCV 92.9 93.7 MCH 32.0 31.3 MCHC 34.4 33.4 RDW 13.9 13.8 Plt Count 169 D 165 MPV 9.4 9.3 L Immature Gran % (Auto) 0.6 H Neut % (Auto) 89.8 H Lymph % (Auto) 2.9 L [place] % (Auto) 6.3 Eos % (Auto) 0.2 Baso % (Auto) 0.2 Lymph # (Auto) 0.6 L [place] # (Auto) 1.2 Eos # (Auto) 0.0 Baso # (Auto) 0.0 Abs Immat Gran (auto) 0.11 H Absolute Neuts (auto) 17.0 H Absolute Nucleated RBC 0.000 0.000 Nucleated RBC % (auto) 0.0 0.0 VBG pH 7.49 H VBG pCO2 31 VBG pO2 91 VBG HCO3 24 VBG O2 Saturation 100.0 VBG Base Excess 1.6 Anion Gap Estim Creat Clear Calc Estimated GFR Random Glucose Lactic Acid Calcium Magnesium Total Bilirubin AST ALT Alkaline Phosphatase Troponin I High Sens C-Reactive Protein B-Natriuretic Peptide Total Protein Albumin Ethyl Alcohol Influenza Type A (PCR) NEGATIVE Influenza Type B (PCR) NEGATIVE RSV RNA Qual (PCR) NEGATIVE SARS-CoV-2 RNA (RT-PCR) NEGATIVE Imaging Radiologist's Impressions: Impressions Chest X-Ray 05/23/23 01:06 IMPRESSION: No acute cardiopulmonary process. Assessment and Plan (1) Acute exacerbation of chronic obstructive pulmonary disease: Status: Acute Plan 82 year old male with COPD on home O2 at 2 liters here with acute on chronic respiratory failure d/t exacerbation of COPD Acute on chronic hypoxic resp failure due to COPD exacerbation, likely precipiated bronchitis -IV steroid (Solumedrol) 40 bid -Bronchodilators by Neb bea and PRN -O2 with goal O sat of 88 to 92 -Empric Doxycyline for for possible bronchitis Leukocytosis--likely from chronic steroid use--monitor HTN--restart home meds BPH--Flomax ? Use of Eliquis-- presecribed on 04/25 DVT prophylaxis Code full, he was uncommitted but said no aggressive measures without further qualifications admission for at least 2 midnights for the management of acute respiratory distress d/t copd exacerbation needing iv steroid and close monitoring of oxygen Quality Stroke Does the patient have a stroke diagnosis?: No VTE Prior VTE?: No VTE Risk Level:: Medical - moderate - high VTE Device Contraindication: Treatment Not Indicated VTE Drug Contraindication: N/A - Med Ordered
[2023-05-23] MEDS: Doxycycline Monohydrate 100 MG CAPSULE PO ×2 (09:41→21:15)
[2023-05-23] MEDS: methylPREDNISolone Sod Succ 40 MG/ML VIAL IVPUSH ×2 (09:41→21:04)
--- NOTE | 2023-05-23 10:21 | MHC.CM.PN ---
Attempted to meet with patient in regards to discharge planning. Nursing care currently being provided. Will attempt to meet again. Continue to monitor for d/c needs.
--- NOTE | 2023-05-23 12:19 | PHA.MEDREC ---
Pharmacy Consult ? Medication Reconciliation Pharmacy has completed the medication reconciliation. Spoke to patient and confirmed medication list.
[2023-05-23] MEDS: Cholecalciferol (Vitamin D3) 25 MCG TABLET PO (13:50)
[2023-05-23] MEDS: Atorvastatin Calcium 80 MG TABLET PO (13:50)
[2023-05-23] MEDS: Ascorbic Acid 500 MG TABLET PO (13:50)
[2023-05-23] MEDS: Apixaban 5 MG TABLET PO ×2 (13:50→21:04)
--- NOTE | 2023-05-23 14:33 | PC.NURSE ---
assumed care of this patient, patient is alert and oriented, skin pwd, respirations even and nonlabored, lung sounds diminished, on 2L via n/c which is baseline for patient, coughing up brownish phlegm that started a couple hours ago, encouraged patient to spit out if possible, reports 0 pain, vss.
[2023-05-23] MEDS: Fluticasone/Umeclidinium/Vilanterol 200/62.5/25 BLST.W.DEV 1 PUFF INHALE (15:36)
[2023-05-23] MEDS: 0.9 % Sodium Chloride Flush 3 ML SYRINGE IVFLUSH ×2 (17:13→21:06)
[2023-05-23] MEDS: polyethylene glycoL 3350 17 GM POWD.PACK PO (21:03)
[2023-05-23] MEDS: Tamsulosin HCL 0.4 MG CAPSULE 0.8 MG PO (21:03)
[2023-05-23] MEDS: Loratadine 10 MG TABLET PO (21:04)
[2023-05-23] MEDS: Melatonin 3 MG TABLET PO (21:15)
[2023-05-24 03:42] VITALS: BP 159/74; PULSE 89; RESP 18; TEMP 36.8; O2SAT 94
[2023-05-24] MEDS: Omeprazole 40 MG CAPSULE.DR PO (05:54)
--- NOTE | 2023-05-24 06:18 | PC.NURSE ---
pt has money in the safe in ED
[2023-05-24 06:25] LABS: Alanine Aminotransferase 22 U/L (0-40); Albumin Level 3.5 g/dL (3.5-5.0); Alkaline Phosphatase 84 U/L (39-117); Anion Gap 12 (12-20); Aspartate Amino Transferase 19 U/L (5-37); Bilirubin Total 0.5 mg/dL (0.0-1.0); Blood Urea Nitrogen 20 mg/dL (9-16); Calcium 9.1 mg/dL (8.4-10.2); Carbon Dioxide 26 mmol/L (22-29); Chloride 103 mmol/L (96-108); Creatinine Clr Calc Pharmacy 69.6; Estimated Glomerular Filt Rate > 60; Glucose Random 165 mg/dL (60-115); Potassium 4.3 mmol/L (3.3-5.1); Sodium 137 mmol/L (135-145); Total Protein 5.7 g/dL (6.5-8.0)
[2023-05-24] MEDS: Cholecalciferol (Vitamin D3) 25 MCG TABLET PO (07:53)
[2023-05-24] MEDS: Apixaban 5 MG TABLET PO (07:53)
[2023-05-24] MEDS: 0.9 % Sodium Chloride Flush 3 ML SYRINGE IVFLUSH (07:53)
[2023-05-24] MEDS: Doxycycline Monohydrate 100 MG CAPSULE PO (07:53)
[2023-05-24] MEDS: Ascorbic Acid 500 MG TABLET PO (07:53)
[2023-05-24] MEDS: Losartan Potassium 25 MG TABLET PO (07:53)
[2023-05-24] MEDS: Atorvastatin Calcium 80 MG TABLET PO (07:53)
[2023-05-24] MEDS: Loratadine 10 MG TABLET PO (07:53)
[2023-05-24] MEDS: methylPREDNISolone Sod Succ 40 MG/ML VIAL IVPUSH (07:58)
[2023-05-24 08:00] VITALS: BP 141/67; PULSE 104; RESP 18; TEMP 37; O2SAT 98
[2023-05-24] MEDS: Albuterol/Iprat 2.5/0.5MG 3 ML AMPUL.NEB INHALE ×3 (08:30→15:23)
[2023-05-24] MEDS: Fluticasone/Umeclidinium/Vilanterol 200/62.5/25 BLST.W.DEV 1 PUFF INHALE (08:39)
[2023-05-24 08:41] VITALS: PULSE 89; RESP 18; O2SAT 97
--- NOTE | 2023-05-24 09:04 | PM.DS ---
DS: Providers Provider Date of Service: 05/24/23 Date of admission: 05/23/23 08:23 Primary care physician: Kika Alcala MD DS: Diagnosis Discharge Diagnosis (1) Acute exacerbation of chronic obstructive pulmonary disease: Status: Acute DS: Summary Hospital Course Hospital Course: admission hpi Chief Complaint: Shortness of breath, wheezing 82-year-old male with a history of multiple medical conditions including COPD with chronic respiratory failure, who is on home oxygen at 2 liters per minute and chronic steroid therapy (prednisone) at 5 mg daily, presented with an acute onset of shortness of breath. He had been experiencing increasing shortness of breath over several days, and yesterday, while at his fpkvgaok-xm-sdq's, she remarked, I can hear you wheezing. Subsequently, he checked his oxygen saturation and found it had dropped to 87 on 2 liters, with his heart rate reaching the 120s, prompting him to seek medical help. In the ED, his oxygen saturation remained above 90, and his chest X-ray showed no acute findings. His white blood cell count is elevated at 18K, likely due to steroid use. Tests for Flu, RSV, and COVID were negative. He has been treated with nebulized bronchodilators, IV steroids, IV ceftriaxone, and azithromycin, and overall, he feels better. Hospital course: The patient presented with shortness of breath, wheezing, and respiratory distress. CXR showed no pneumonia, and tests for Influenza, Flu, and RSV were negative. White blood cell count was high, likely due to chronic steroid use. He was admitted for acute respiratory failure/distress due to exacerbation of COPD. Treatment included IV steroids, bronchodilators via nebulizers, and doxycycline for possible bronchitis, resulting in a more rapid recovery than expected. His lungs are now clear, and breathing is comfortable. He will be discharged with prednisone for 3 more days, totaling 5 days, to complete the course of doxycycline for possible bronchitis, continue his usual inhalers, and resume using oxygen as before. Time Attestation Discharge Coordination Time (in mins): 35 Quality: Safe Use of Opioids Does Pt have an Active Cancer Diagnosis on the Problem List?: No Quality: Stroke Does the patient have a stroke diagnosis?: No Physical Exam Vital Signs: Vital Signs: Last Vital Signs Temp 98.2 F 05/24/23 03:42 Pulse 89 05/24/23 08:41 Resp 18 05/24/23 08:41 BP 159/74 H 05/24/23 03:42 Pulse Ox 94 05/24/23 03:42 O2 Del Method Nasal Cannula 05/24/23 03:42 O2 Flow Rate 2 05/24/23 03:42 Oxygen Flow Rate 2 05/23/23 00:57 BMI result Body Mass Index 21.8 General: AO X 3, no acute distress Resp: CTA bilateral CVS: S1,S2,RRR GI: +BS, NT, no distention Skin: No rash Neuro: motor grossly intact Psych: appropriate affect DS: Data Data Completed and Pending Labs on day of discharge: Laboratory Results - last 24 hr 05/24/23 05:16 Hold Purple Top SEE NOTE Sodium 137 Potassium 4.3 Chloride 103 Carbon Dioxide 26 Anion Gap 12 BUN 20 H Creatinine 0.81 Estim Creat Clear Calc 69.6 Estimated GFR > 60 Random Glucose 165 H Calcium 9.1 Total Bilirubin 0.5 AST 19 ALT 22 Alkaline Phosphatase 84 Total Protein 5.7 L Albumin 3.5 Preliminary micro results at discharge 05/23/23 02:08 Blood Culture - Preliminary Blood - Venous No growth after 24 hours. 05/23/23 02:06 Blood Culture - Preliminary Blood - Venous No growth after 24 hours. Discharge Plan Discharge Anticipated Discharge Date/Time: 05/24/23 09:01 Patient Disposition: Home Health Service Discharge Diagnosis: Acute respiratory failure due to COPD exacerbation Referrals: Kika Alcala MD [Primary Care Provider] - 1 Week Discharge Medications: New prednisone 20 mg tablet 20 mg PO DAILY Qty: 3 0RF doxycycline monohydrate 100 mg Capsule 100 mg PO Q12H Qty: 11 0RF Continued omeprazole 40 mg capsule,delayed release(DR/EC) 1 cap PO DAILY tamsulosin 0.4 mg capsule 2 cap PO BEDTIME cyclosporine [Restasis] 0.05 % dropperette 1 drp ophthalmic (eye) BID budesonide 3 mg capsule,delayed,extend.release 1 cap PO DAILY PRN (Reason: Diarrhea) albuterol sulfate 90 mcg/actuation HFA aerosol inhaler 2 puff PO Q6H PRN (Reason: wheezing) cetirizine 5 mg Tablet 5 mg PO BID atorvastatin 80 mg tablet 80 mg PO DAILY meclizine 25 mg tablet 25 mg PO TID PRN (Reason: Nausea) Eliquis 5 mg tablet 5 mg PO BID Trelegy Ellipta 200-62.5-25 mcg blister with device 1 ea INHALATION DAILY nystatin 100,000 unit/gram Powder 1 appl TOPICAL DAILY PRN (Reason: Rash) melatonin 3 mg Tablet 3 mg PO BEDTIME PRN (Reason: Insomnia) acetaminophen 500 mg Tablet 500 mg PO QID PRN (Reason: Pain) prednisone 5 mg tablet 5 mg PO QAM Citrucel 500 mg tablet 500 mg PO DAILY polyethylene glycol 3350 [Miralax] 17 gram/dose powder 17 g PO BID ascorbate calcium (vitamin C) 500 mg tablet 500 mg PO DAILY cholecalciferol (vitamin D3) 25 mcg (1,000 unit) capsule 25 mcg PO DAILY losartan 25 mg tablet 25 mg PO DAILY Discharge Orders: Discharge Order (Routine); Ordered 05/24/23 Ordered By: King Torres Diet: Advance to usual diet Activity on Discharge: As tolerated Stand Alone Forms: Patient Portal Discharge page Print Language: Romanian Care Plan Goals: Return to level of activity before hospitalization, full recovery from a COPD exacerbation. Health Concerns: Chronic respiratory failure due to COPD on oxygen at home Plan of Treatment: Take prednisone as directed, take doxycycline as directed and follow up with your doctor within a week, call for appointment. Assessment: See above Discharge Date/Time: 05/24/23 16:02
--- NOTE | 2023-05-24 09:20 | MHC.CM.PN ---
pt lives alone in independent ing he has a homemaker 2x weekly for 2 hrs he is on 20/09 has a ride home
[2023-05-24 09:42] LABS: Hematocrit 36.4 % (42.0-52.0); Hemoglobin 12.3 g/dl (14.0-18.0); Imm Gran Abs Auto 0.21 X10*3/uL (0.00-0.03); Lymphocytes Absolute Auto 0.3 X10*3/uL (1.2-4.9); Lymphocytes Percent Auto 1.4 % (20-40); MANUAL DIFF FLAG SCAN; Mean Corpuscular HGB Conc 33.8 g/dl (31.0-36.0); Mean Corpuscular Hemoglobin 31.6 pg (27.0-33.0); Mean Corpuscular Volume 93.6 fL (80.0-98.0); Mean Platelet Volume 10.1 fL (9.4-12.4); Monocytes Absolute Auto 0.7 X10*3/uL (0.1-1.2); Neutrophils Absolute Auto 20.4 x10*3/uL (2.0-8.3); Neutrophils Percent Auto 94.6 % (45-73); Platelet Count 178 X10*3/uL (160-400); Red Blood Count 3.89 X10*6/uL (4.60-5.80); Red Cell Distribution Width 14.2 % (11.0-16.0); SCAN SMEAR FLAG 1; White Blood Count 21.6 X10*3/uL (4.8-10.8)
[2023-05-24 11:30] LABS: SLIDE REVIEW VERIFIED
[2023-05-24 11:43] VITALS: PULSE 101; RESP 18; O2SAT 97
--- NOTE | 2023-05-24 13:40 | MHC.CM.PN ---
pt dcd home by mariano to [address] [place] [address]
--- NOTE | 2023-05-24 13:50 | MHC.CM.PN ---
amb cancelled pt has arranged his own ride
--- NOTE | 2023-05-24 14:04 | P.F2F_ITS ---
Service Date Service Date: 05/24/23 Encounter Date of encounter: 05/24/23 Reasons for Services Signs and symptoms assessed: shortness of breath Reason for longterm: medication management and teach disease management Homebound: Leaving the home is medically contraindicated at this time without the asist of a device and/or another person due th the listed conditions above and below. Reason homebound: unsteady gait / fall risk, shortness of breath at rest and other Homebound supporting statement: homebound due to weakness from hospitalization, unstable unankle and need to use orthosis and therefore needs the assistance of another person Certification: Based on the above findings, I certify that this patient is confined to the home and needs intermittent longterm care, physical therapy and/or speech therapy, or continues to need occupational therapy. The patient is under my care, and I have initiated the establishment of the plan of care. The patient will be followed by a physician who will periodically review the plan of care. Time Spent With Patient Time: Total time managing care of this patient today ____ minutes.
[2023-05-24 15:27] VITALS: PULSE 112; RESP 22; O2SAT 97
== END 2023-05-24 16:02 | disposition home or self-care (01) | DRG 190 ==
LOC: HO.ED 04:41 → HO.EDOVER 08:36 → HO.S3 18:32
PROVIDERS: Admitting Provider Internal Medicine; Emergency Provider Emergency Medicine; PCP Internal Medicine; Visit Provider Internal Medicine
DX: J44.1 Chronic obstructive pulmonary disease with (acute) exacerbation (principal); J96.21 Acute and chronic respiratory failure with hypoxia; N40.0 Benign prostatic hyperplasia without lower urinary tract symptoms; M06.9 Rheumatoid arthritis, unspecified; Z20.822 Contact with and (suspected) exposure to COVID-19; Z99.81 Dependence on supplemental oxygen; Z79.52 Long term (current) use of systemic steroids; Z79.899 Other long term (current) drug therapy
CPT/HCPCS: 0241U; 36415; 71045; 80053; 80307; 82803; 83605; 83735; 83880; 84484; 85025; 85027; 86140; 87040; 93005; 94640; 99285; J0456; J0696; J2920; J2930

== ENCOUNTER → 2023-05-23 07:13 | Outpatient (BNV) | payer MEDICARE, OTHER, SELFPAY | PROVIDERS: Admitting Provider Internal Medicine; Emergency Provider Emergency Medicine; PCP Internal Medicine; Visit Provider Internal Medicine Cardiovascular Disease | DX: R06.02 Shortness of breath (principal) | CPT/HCPCS: 93010 ==

== ENCOUNTER → 2023-05-23 08:23 | Outpatient (BNV) | payer MEDICARE, OTHER, SELFPAY | PROVIDERS: Admitting Provider Internal Medicine; Emergency Provider Emergency Medicine; PCP Internal Medicine; Visit Provider Internal Medicine | DX: J44.1 Chronic obstructive pulmonary disease with (acute) exacerbation (principal) | CPT/HCPCS: 99223; 99239; G0180 ==

== ENCOUNTER 2023-05-27 10:19 | Outpatient (REF) | payer MEDICARE, OTHER, SELFPAY ==
[2023-05-27 10:59] LABS: Hematocrit 38.5 % (42.0-52.0); Mean Corpuscular HGB Conc 33.8 g/dl (31.0-36.0); Mean Corpuscular Hemoglobin 31.7 pg (27.0-33.0); Mean Corpuscular Volume 93.9 fL (80.0-98.0); Mean Platelet Volume 9.1 fL (9.4-12.4); Platelet Count 207 X10*3/uL (160-400); Red Cell Distribution Width 13.7 % (11.0-16.0); White Blood Count 9.9 X10*3/uL (4.8-10.8)
== END 2023-05-27 10:20 | disposition home or self-care (01) ==
LOC: HO.LAB 10:19
PROVIDERS: Visit Provider Internal Medicine
DX: D72.829 Elevated white blood cell count, unspecified (principal)
CPT/HCPCS: 36415; 85027

== ENCOUNTER 2024-03-16 09:48 | Emergency (ER) | payer MEDICARE, OTHER, SELFPAY ==
--- NOTE | ~2024-03-16 | CT_ITS ---
EXAMINATION: CT ANGIOGRAM HEAD AND NECK CLINICAL INFORMATION: Visual changes, history of prior stroke. COMPARISON: Noncontrast head CT 06/20/2021. CT angiogram head and neck 09/18/2020. TECHNIQUE: Noncontrast axial imaging of the head was performed. This was followed by test bolus sequences and head and neck intravenous bolus administration 70 mL of Omnipaque 350. Helical imaging was performed in the axial plane from the aortic arch to the skull vertex. A [address] head was also obtained. The data was processed at the principal technologist's workstation for generation of MIP sequences. Angled MIPs and volume rendered reformatted images were also generated at an offline 3D workstation. Stenoses are assessed in accordance with NASCET criteria unless otherwise indicated. This CT examination was performed using dose optimization techniques as appropriate, variously including the following: *Automated exposure control *Adjustment of mA and/or kV according to patient size (this includes techniques or standardized protocols for targeted exams where dose is matched to indication/reason for exam; i.e. extremities or head) *Use of iterative reconstruction technique FINDINGS: NONCONTRAST HEAD CT: There is no evidence of intracranial hemorrhage or extra-axial fluid collection. There is no mass effect, or edema. No CT evidence of acute territorial infarct. Ventricles, sulci, and cisterns are normal in size and configuration for patient age. No hydrocephalus. No midline shift. Negative hyperdense MCA sign. Negative insular ribbon sign. Mild supratentorial patchy white matter hypodensities, in keeping with small vessel ischemic changes. Old lacunar type infarcts in the bilateral gangliocapsular regions. Old focal infarct in the anterior right centrum semiovale. Partial empty sella. Mild atheromatous calcification of the bilateral carotid siphons and V4 segments vertebral arteries bilaterally. Globes and orbital contents image normally. Bilateral lens replacements present. No extracranial soft tissue abnormalities. The paranasal sinuses, mastoid air cells, and tympanic cavities are normally aerated. No suspicious bony abnormalities. Degenerative TM joint changes. NECK CTA: -AORTIC ARCH: Normal caliber. Mild atheromatous calcification. -GREAT VESSEL ORIGINS: 3 vessel branching pattern. Mild calcifications at the origins without significant luminal narrowing. -RIGHT COMMON CAROTID ARTERY: Normal in course and caliber to the bifurcation. -CERVICAL RIGHT INTERNAL CAROTID ARTERY: Mild calcific atherosclerotic disease of the carotid bulb and proximal internal carotid artery without flow-limiting stenosis. -LEFT COMMON CAROTID ARTERY: Normal in course and caliber to the bifurcation. -CERVICAL LEFT INTERNAL CAROTID ARTERY: Mild calcific atherosclerotic disease of the carotid bulb and proximal internal carotid artery without flow-limiting stenosis. -CERVICAL RIGHT VERTEBRAL ARTERY: Mild origin stenosis. Otherwise normal course and caliber into the skull base. -CERVICAL LEFT VERTEBRAL ARTERY: Mildly dominant. Patent origin, course and caliber into the skull base. OTHER, SOFT TISSUES: Dense heterogeneous appearing thyroid gland with mild enlargement, but no dominant nodule by CT. -No mass or abnormal lymphadenopathy within the neck. No retropharyngeal abnormality. -Lung disease are degraded by respiratory motion artifact, however there are advanced centrilobular emphysematous changes with biapical scarring present. -Degenerative spondylosis of the spine. CTA OF THE BRAIN: -INTRACRANIAL INTERNAL CAROTID ARTERIES: Calcific atherosclerotic disease of the intracranial internal carotid arteries without occlusion or flow-limiting stenosis. -RIGHT ANTERIOR CEREBRAL ARTERY: Normal A1 segment. Normal arborization of the distal segments. -LEFT ANTERIOR CEREBRAL ARTERY: Normal A1 segment. Normal arborization of the distal segments. -ANTERIOR COMMUNICATING ARTERY: Normal. -RIGHT MIDDLE CEREBRAL ARTERY: Normal M1 segment of the MCA without focal stenosis or occlusion. Normal arborization of the distal segments. -LEFT MIDDLE CEREBRAL ARTERY: Normal M1 segment of the MCA without focal stenosis or occlusion. Normal arborization of the distal segments. -RIGHT VERTEBRAL ARTERY V4: Normal in course and caliber without stenosis. -LEFT VERTEBRAL ARTERY V4: Mild calcification. Normal in course and caliber without stenosis. -BASILAR ARTERY: Normal without focal stenosis or occlusion. Normal appearance of the proximal superior cerebellar arteries. Normal basilar tip. -RIGHT POSTERIOR CEREBRAL ARTERY: Normal P1 segment. Normal opacification of the distal SHEARER OPERATOR segments. -LEFT POSTERIOR CEREBRAL ARTERY: Normal P1 segment. Normal opacification of the distal SHEARER OPERATOR segments. -POSTERIOR COMMUNICATING ARTERIES: Not well seen. MIPPED reformats demonstrate no regions of oligemia in any vascular territory. Normal opacification of the superior sagittal, straight, transverse, and sigmoid sinuses. No venous thrombosis. CT/CT angio head neck IMPRESSION: 1. No evidence of intracranial hemorrhage, acute infarction, mass effect, or edema. Chronic findings as discussed. 2. CT angiogram head and neck demonstrate no flow-limiting stenosis, occlusion, dissection, or aneurysm. 3. Additional ancillary findings as discussed. Electronically signed by: Joel Cassidy MD 03/16/2024 01:12 PM ALIZA
--- NOTE | 2024-03-16 09:55 | ED.GENADULT ---
HPI - General Adult General Chief complaint: General Medical Stated complaint: VISION CHANGES Time Seen by Provider: 03/16/24 09:55 History of Present Illness ED Provider: Cliff CONRAD narrative: The patient is an 83-year-old male who woke up at around 06:00 this morning. At around 07:00 he fetched his daily newspaper outside is front door. He tried to read the paper but he felt that there was something wrong with his vision. He felt that he could not really make out the words on the page. He said that this was not associated with any laterality. He says he tried to read for awhile and then stopped and tried again several times for about an hour. Each time he had difficulty reading. Ultimately he also developed a headache that he felt more behind his left eye. He also felt that when he was speaking that there was some sort of strange echo phenomenon. Ultimately he called an ambulance and was brought to the hospital. By the time he got here he felt that his visual symptoms were better but that his headache discomfort was more prominent. Apparently at some point prior to arrival he had spoken to a stepdaughter who felt that his speech was normal for him. 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 He did not feel that today's visual symptoms were similar to the visual problems he diagnosed with a stroke. The patient says he does not have a history of headaches or migraines. On arrival here he felt that his vision was considerably better already than it has been at home and he was able to read the letters on my badge which he said he could not have done earlier. He says that the visual difficulties he was experiencing were in both eyes. He says that he tried reading with each of his eye separately and that there was no difference between the eyes. He rated his head discomfort as a 4/10. No fever, sweats, chills. Related Data Home Medications ?Medication ?Instructions ?Recorded ?Confirmed albuterol sulfate 90 mcg/actuation 2 puff PO Q6H PRN wheezing 09/18/20 05/23/23 aerosol inhaler budesonide 3 mg 1 cap PO DAILY PRN Diarrhea 09/18/20 05/23/23 capsule,delayed,extended release cyclosporine 0.05 % eye drops in a 1 drp ophthalmic (eye) BID 09/18/20 05/23/23 dropperette (Restasis) omeprazole 40 mg capsule,delayed 1 cap PO DAILY 09/18/20 05/23/23 release tamsulosin 0.4 mg capsule 2 cap PO BEDTIME 09/18/20 05/23/23 cetirizine 5 mg tablet 5 mg PO BID 09/19/20 05/23/23 ascorbate calcium (vitamin C) 500 500 mg PO DAILY 05/26/21 05/23/23 mg tablet cholecalciferol (vitamin D3) 25 25 mcg PO DAILY 05/26/21 05/23/23 mcg (1,000 unit) capsule methylcellulose (laxative) 500 mg 500 mg PO DAILY 05/26/21 05/23/23 tablet (Citrucel) polyethylene glycol 3350 17 17 g PO BID 05/26/21 05/23/23 gram/dose oral powder (Miralax) prednisone 5 mg tablet 5 mg PO QAM 05/26/21 05/23/23 losartan 25 mg tablet 25 mg PO DAILY 09/22/21 05/23/23 acetaminophen 500 mg tablet 500 mg PO QID PRN Pain 05/23/23 05/23/23 apixaban 5 mg tablet (Eliquis) 5 mg PO BID 05/23/23 05/23/23 atorvastatin 80 mg tablet 80 mg PO DAILY 05/23/23 05/23/23 fluticasone fur. 200 mcg-umeclid 1 ea inhalation DAILY 05/23/23 05/23/23 62.5 mcg-vilant 25 mcg inhalat.powder (Trelegy Ellipta) meclizine 25 mg tablet 25 mg PO TID PRN Nausea 05/23/23 05/23/23 melatonin 3 mg tablet 3 mg PO BEDTIME PRN Insomnia 05/23/23 05/23/23 nystatin 100,000 unit/gram topical 1 appl topical DAILY PRN Rash 05/23/23 05/23/23 powder Previous Rx's ?Medication ?Instructions ?Recorded doxycycline monohydrate 100 mg 100 mg PO Q12H #11 caps 05/24/23 capsule prednisone 20 mg tablet 20 mg PO DAILY #3 tabs 05/24/23 Allergies Allergy/AdvReac Type Severity Reaction Status Date / Time morphine [MORPHINE] Allergy Severe HYPOTENSION Verified 03/16/24 10:01 aspirin [ASA] Allergy Intermediate PETTICHIAE Verified 03/16/24 10:01 cefazolin [From ANCEF] Allergy Unknown Rash Verified 03/16/24 10:01 gatifloxacin [From ZYMAR] Allergy Unknown Rash Verified 03/16/24 10:01 levofloxacin [From LEVAQUIN] Allergy Unknown Rash Verified 03/16/24 10:01 Review of Systems Review of Systems: Yes all other systems are reviewed and are negative [facility], LAT[facility] Past Medical History Medical History Small cell carcinoma Fracture of calcaneus Degenerative joint disease involving multiple joints Rheumatoid arthritis Pemphigoid BPH (benign prostatic hyperplasia) IBS (irritable bowel syndrome) GERD without esophagitis COPD (chronic obstructive pulmonary disease) Varicose veins of both lower extremities Presbycusis of both ears Mixed hyperlipidemia Family History Family History Brother Colon cancer Mother Colon cancer Father Prostate cancer Social History Social History Household Members: None Housing: House Do you presently have visiting nurse or other home services: No Alcohol intake: never Patient Tobacco Use Status: Former Tobacco user Smoked in Last 30 Days: No Use of substances other than those prescribed or required for medical reasons: No Advance Directives: No Advance Directives Information Provided: Yes service: No Current occupational status: retired Physical Exam ED Vital Signs: Vital Signs - 24 hr 03/16/24 09:56 03/16/24 11:23 03/16/24 15:49 Temperature 98.3 F 98.2 F Pulse Rate 83 73 76 Respiratory Rate 20 16 16 Blood Pressure 176/77 H 164/71 H 139/55 L Pulse Oximetry 94 96 98 Oxygen Delivery Method Nasal Cannula Nasal Cannula Nasal Cannula Oxygen Flow Rate 2 2 03/16/24 18:40 Temperature 98.2 F Pulse Rate 76 Respiratory Rate 16 Blood Pressure 139/55 L Pulse Oximetry 98 Oxygen Delivery Method Nasal Cannula Oxygen Flow Rate 2 BMI result Body Mass Index 20.9 Const Other: The patient is an 83-year-old male who is awake and alert, pleasant and cooperative. He does not appear in obvious distress or have an obvious neurological deficit apparent. HENMT Other: Face is symmetrical. Mucous membranes moist. Tongue is midline. Eyes Other: Pupils are round equal, extraocular movements are intact including lateral gaze in both directions. Visual simpson are intact to confrontation bilaterally. The patient was able to read all the letters on my badge. Neck Neck: Yes full ROM and Yes no JVD Resp Effort & Inspection: normal respiratory effort Auscultation: clear to auscultation bilaterally Cardio Rate: regular rate Rhythm: regular rhythm Heart sounds: S1 normal heart sound present and S2 normal heart sound present GI Other: Abdomen is soft nontender Skin Other: skin is dry and unremarkable Neuro Other: the patient is awake, alert, pleasant, cooperative. He is fully oriented to time and place and person. His demeanor is pleasant and nontoxic. He follows commands appropriately. Eye movements are intact. Pupils are round equal. Visual simpson are intact to confrontation. Face is symmetrical. Speech is normal without aphasia or dysarthria. Strength is normal and symmetrical in arms and legs. There is no pronator drift. Finger-nose is intact. Heel-bob is intact. No obvious truncal ataxia. Patient apparently ordinarily walks with a walker. He walked holding my hands as if I with a walker. He walked well in this fashion. NIH stroke scale is 0. Extrem Other: no peripheral edema. No calf swelling or tenderness. No asymmetry. Medications Administered Discontinued Medications Generic Name Dose Route Start Last Admin Trade Name Freq PRN Reason Stop Dose Admin Sodium Chloride 500 mls @ 500 mls/hr 03/16/24 14:45 03/16/24 15:49 Ns IV 03/16/24 15:44 Infused .Q1H DANE Infusion Acetaminophen 1,000 mg in 100 mls @ 400 mls/hr 03/16/24 14:31 03/16/24 15:04 Ofirmev IV 03/16/24 14:45 Infused ONCE ONE Infusion Iohexol 100 ml 03/16/24 11:54 03/16/24 11:56 Iohexol 350 Mg/Ml 100 Ml Infus..Btl IV 03/16/24 11:55 70 ml ONCE ONE Administration Metoclopramide HCl 5 mg 03/16/24 14:31 03/16/24 15:48 Metoclopramide Hcl 10 Mg/2 Ml Vial IVPUSH 03/16/24 14:32 5 mg ONCE ONE Administration Medical Decision Making Medical Decision Making MDM Narrative: The patient is a very pleasant 83-year-old male who is on apixaban, apparently because of a previous history of stroke affecting his visual simpson. Today around 07:00 the patient noticed that he was having difficulty reading. This was 1st apparent when he was trying to read the newspaper. He had been up for about an hour before trying to read the newspaper and he thought his vision was normal up to that point. For about an hour he intermittently at tempted to read the newspaper that each time he felt that he had the same difficulty seeing the lines of type and reading the newspaper in the central area of his visual field. he clearly felt that his visual difficulties were present in both eyes rather than just 1 eye. SheHe subsequently also developed a headache. Ultimately he called an ambulance and was brought to the hospital. Because of what sounded like an abrupt development of difficulty with his vision paramedics presented the case as a possible code stroke. I saw the patient right away. He was awake and alert and did not have any obvious focal neurological deficit. He was feeling somewhat better although he was now complaining of a headache that he had not had initially. He indicated that the headache was behind his left eye. He was able to read my badge well. He said that he felt his vision was much better than it had been before the ambulance had arrived. I do not appreciate any focal neurological deficit on exam and his NIH stroke scale is 0. given that the patient had visual difficulties that spontaneously improved and given that he had a headache which she said was centered around his left eye I felt this combination of symptoms presented a possible migraine syndrome. A CT angiogram of the head and neck shows no acute stroke and no acute vascular problems. Since I felt that the patient's description of the course of his symptoms was potentially consistent with a migraine, i.e. bilateral ocular visual symptoms in his central vision with spontaneous improvement but followed by headache centered around one eye, I felt that treating for a possible migraine syndrome would not be unreasonable. He was given a dose of IV ketorolac and a dose of IV metoclopramide. His headache improved. overall I felt that the patient looked quite well throughout his ER stay. I asked the patient whether he would prefer to be hospitalized for further investigation for a possible stroke syndrome or whether he would prefer to be discharged since he was feeling considerably better. At that point the patient indicated that he would prefer to be discharged. I do not think this is unreasonable. He will be advised to rest and take it easy over the weekend, to use acetaminophen as needed for discomfort, and follow up with his PCP and his slab stripper. Lab Data 03/16/24 10:25 03/16/24 10:25 Labs: Lab Results 03/16/24 03/16/24 03/16/24 Range/Units 10:12 10:25 10:26 WBC 8.6 (4.8-10.8) X10*3/uL RBC 4.28 L (4.60-5.80) X10*6/uL Hgb 13.4 L (14.0-18.0) g/dl Hct 39.3 L (42.0-52.0) % MCV 91.8 (80.0-98.0) fL MCH 31.3 (27.0-33.0) pg MCHC 34.1 (31.0-36.0) g/dl RDW 14.1 (11.0-16.0) % Plt Count 184 (160-400) X10*3/uL MPV 9.1 L (9.4-12.4) fL Immature Gran % (Auto) 0.6 H (0.0-0.4) % Neut % (Auto) 78.4 H (45-73) % Lymph % (Auto) 8.5 L (20-40) % Cavalier % (Auto) 10.7 (2-11) % Eos % (Auto) 1.5 (0-4) % Baso % (Auto) 0.3 (0-2) % Lymph # (Auto) 0.7 L (1.2-4.9) X10*3/uL Cavalier # (Auto) 0.9 (0.1-1.2) X10*3/uL Eos # (Auto) 0.1 (0.0-0.4) X10*3/uL Baso # (Auto) 0.0 (0.0-0.2) X10*3/uL Abs Immat Gran (auto) 0.05 H (0.00-0.03) X10*3/uL Absolute Neuts (auto) 6.8 (2.0-8.3) x10*3/uL Absolute Nucleated RBC 0.000 (0.0-0.012) X10*3/uL Nucleated RBC % (auto) 0.0 (0.0-0.2) /100WBC PT 14.7 H (10.9-12.4) SEC INR 1.3 H (0.9-1.1) Sodium 136 (135-145) mmol/L Potassium 3.9 (3.3-5.1) mmol/L Chloride 103 (96-108) mmol/L Carbon Dioxide 30 H (22-29) mmol/L Anion Gap 7 L (12-20) BUN 14 (9-16) mg/dL Creatinine 0.81 (0.5-1.4) mg/dL Estim Creat Clear Calc 65.8 Estimated GFR > 60 Random Glucose 103 (60-115) mg/dL Calcium 8.5 D (8.4-10.2) mg/dL Magnesium 1.8 (1.6-2.6) mg/dL Total Bilirubin 0.6 (0.0-1.0) mg/dL Direct Bilirubin 0.3 (0.0-0.5) mg/dL AST 22 (5-37) U/L ALT 23 (0-40) U/L Alkaline Phosphatase 78 (39-117) U/L Troponin I High Sens 2.9 (<3.5-35.0) ng/L B-Natriuretic Peptide 40 (<100) pg/mL Total Protein 6.1 L (6.5-8.0) g/dL Albumin 3.9 (3.5-5.0) g/dL Ethyl Alcohol < 10 mg/dL Influenza Type A (PCR) NEGATIVE (Negative) Influenza Type B (PCR) NEGATIVE (Negative) RSV RNA Qual (PCR) NEGATIVE (Negative) SARS-CoV-2 RNA (RT-PCR) NEGATIVE (Negative) Independent Interpretation I performed an independent interpretation of an: EKG Interpretation: EKG at 11:04 shows normal sinus rhythm with a rate of 40 beats per minute. No acute findings. No change from previous. Normal EKG. Discharge Plan Discharge Clinical Impression: Vision disturbance, Headache Patient Disposition: Home, Self-Care Additional Instructions: At this point I think it is possible that your symptoms this morning might have been related to a migraine phenomenon. The CT scan of your head did not show any acute stroke and the blood vessels did not show any blockages in your blood vessels. Your symptoms seemed to have improved somewhat with treatment of a migraine. Please continue your regular medications at home. Please plan on making a follow up appointment with your regular doctor and also with your eye doctor. Call the offices on Tuesday for a follow up appointment. (Dr. Zamudio is not in our system so I have subsituted Dr. Lopez, her partner, as an alternative). You may use acetaminophen (Tylenol) as needed for headache. You may take 2 extra-strength acetaminophen per dose up to 3 times per day. If at any point you feel you have significantly worsening symptoms please return to the emergency department. Prescriptions: No Action omeprazole 40 mg capsule,delayed release(DR/EC) 1 cap PO DAILY tamsulosin 0.4 mg capsule 2 cap PO BEDTIME cyclosporine [Restasis] 0.05 % dropperette 1 drp ophthalmic (eye) BID budesonide 3 mg capsule,delayed,extend.release 1 cap PO DAILY PRN (Reason: Diarrhea) albuterol sulfate 90 mcg/actuation HFA aerosol inhaler 2 puff PO Q6H PRN (Reason: wheezing) cetirizine 5 mg Tablet 5 mg PO BID atorvastatin 80 mg tablet 80 mg PO DAILY meclizine 25 mg tablet 25 mg PO TID PRN (Reason: Nausea) Eliquis 5 mg tablet 5 mg PO BID Trelegy Ellipta 200-62.5-25 mcg blister with device 1 ea INHALATION DAILY nystatin 100,000 unit/gram Powder 1 appl TOPICAL DAILY PRN (Reason: Rash) melatonin 3 mg Tablet 3 mg PO BEDTIME PRN (Reason: Insomnia) acetaminophen 500 mg Tablet 500 mg PO QID PRN (Reason: Pain) prednisone 20 mg tablet 20 mg PO DAILY Qty: 3 0RF doxycycline monohydrate 100 mg Capsule 100 mg PO Q12H Qty: 11 0RF prednisone 5 mg tablet 5 mg PO QAM Citrucel 500 mg tablet 500 mg PO DAILY polyethylene glycol 3350 [Miralax] 17 gram/dose powder 17 g PO BID ascorbate calcium (vitamin C) 500 mg tablet 500 mg PO DAILY cholecalciferol (vitamin D3) 25 mcg (1,000 unit) capsule 25 mcg PO DAILY losartan 25 mg tablet 25 mg PO DAILY Referrals: Ludwig Lopez MD [Physician] - (visual changes) Kika Alcala MD [Primary Care Provider] - (Headache, possibly a migraine phenomenon) Interventions: ED Discharge Assessment Last Done: 03/16/24 18:40 Discharge Date/Time: 03/16/24 18:41 Print Language: Gibraltarian
[2024-03-16 09:56] VITALS: BP 176/77; BP 203/90; PULSE 83; PULSE 96; RESP 20; TEMP 36.8; O2SAT 94; O2SAT 97; BMI 20.9
--- NOTE | 2024-03-16 09:59 | ECG_ITS ---
Test Reason : VISUAL CHANGE Blood Pressure : */* mmHG Vent. Rate : 70 BPM Atrial Rate : 70 BPM P-R Int : 148 ms QRS Dur : 80 ms QT Int : 376 ms P-R-T Axes : 69 28 47 degrees QTcB Int : 406 ms Normal sinus rhythm Normal ECG When compared with ECG of 23-May-2023 07:34, No significant change was found Referred By: Mark Coronado Electronically Signed By: TERRANCE LANDRUM MD
[2024-03-16 10:30] LABS: MANUAL DIFF FLAG NO
[2024-03-16 10:33] LABS: Basophils Percent Auto 0.3 % (0-2); Eosinophils Absolute Auto 0.1 X10*3/uL (0.0-0.4); Eosinophils Percent Auto 1.5 % (0-4); Hematocrit 39.3 % (42.0-52.0); Hemoglobin 13.4 g/dl (14.0-18.0); Imm Gran Abs Auto 0.05 X10*3/uL (0.00-0.03); Imm Gran Pct Auto 0.6 % (0.0-0.4); Lymphocytes Absolute Auto 0.7 X10*3/uL (1.2-4.9); Lymphocytes Percent Auto 8.5 % (20-40); Mean Corpuscular HGB Conc 34.1 g/dl (31.0-36.0); Mean Corpuscular Hemoglobin 31.3 pg (27.0-33.0); Mean Corpuscular Volume 91.8 fL (80.0-98.0); Mean Platelet Volume 9.1 fL (9.4-12.4); Monocytes Absolute Auto 0.9 X10*3/uL (0.1-1.2); Monocytes Percent Auto 10.7 % (2-11); Neutrophils Absolute Auto 6.8 x10*3/uL (2.0-8.3); Neutrophils Percent Auto 78.4 % (45-73); Platelet Count 184 X10*3/uL (160-400); Red Blood Count 4.28 X10*6/uL (4.60-5.80); Red Cell Distribution Width 14.1 % (11.0-16.0); White Blood Count 8.6 X10*3/uL (4.8-10.8)
[2024-03-16 10:47] LABS: Alanine Aminotransferase 23 U/L (0-40); Albumin Level 3.9 g/dL (3.5-5.0); Alkaline Phosphatase 78 U/L (39-117); Anion Gap 7 (12-20); Aspartate Amino Transferase 22 U/L (5-37); Bilirubin Direct 0.3 mg/dL (0.0-0.5); Bilirubin Total 0.6 mg/dL (0.0-1.0); Blood Urea Nitrogen 14 mg/dL (9-16); Calcium 8.5 mg/dL (8.4-10.2); Carbon Dioxide 30 mmol/L (22-29); Chloride 103 mmol/L (96-108); Creatinine Clr Calc Pharmacy 65.8; Estimated Glomerular Filt Rate > 60; Glucose Random 103 mg/dL (60-115); Magnesium 1.8 mg/dL (1.6-2.6); Potassium 3.9 mmol/L (3.3-5.1); Sodium 136 mmol/L (135-145); Total Protein 6.1 g/dL (6.5-8.0)
[2024-03-16 10:48] LABS: Ethanol < 10 mg/dL
[2024-03-16 10:51] LABS: INTERNATIONAL NORM RATIO 1.3 (0.9-1.1); Prothrombin Time 14.7 SEC (10.9-12.4)
[2024-03-16 10:51] LABS: B Type Natriuretic Peptide 40 pg/mL (<100)
[2024-03-16 10:52] LABS: Troponin-I High Sensitivity 2.9 ng/L (<3.5-35.0)
[2024-03-16 11:12] LABS: Influenza A PCR NEGATIVE (Negative); Influenza B PCR NEGATIVE (Negative); Resp Syncy Virus RNA Qual PCR NEGATIVE (Negative); SARS COV2 PCR INHOUSE NEGATIVE (Negative)
[2024-03-16 11:23] VITALS: BP 164/71; PULSE 73; RESP 16; TEMP 36.8; O2SAT 96
[2024-03-16] MEDS: iohexoL 350 MG/ML 100 ML INFUS..BTL IV (11:56)
[2024-03-16] MEDS: 0.9 % Sodium Chloride 500 ML IV (14:47)
[2024-03-16] MEDS: Acetaminophen 1,000 MG/100 ML PIGGYBACK 400 MG IV (14:49)
[2024-03-16] MEDS: Metoclopramide HCl 10 MG/2 ML VIAL 5 MG IVPUSH (15:48)
[2024-03-16 15:49] VITALS: BP 139/55; PULSE 76; RESP 16; O2SAT 98
[2024-03-16 18:40] VITALS: BP 139/55; PULSE 76; RESP 16; TEMP 36.8; O2SAT 98
== END 2024-03-16 18:41 | disposition home or self-care (01) ==
PROVIDERS: Emergency Provider Emergency Medicine; PCP Internal Medicine
DX: H53.9 Unspecified visual disturbance (principal); R51.9 Headache, unspecified; Z03.818 Encounter for observation for suspected exposure to other biological agents ruled out; J44.9 Chronic obstructive pulmonary disease, unspecified; E78.5 Hyperlipidemia, unspecified; Z79.02 Long term (current) use of antithrombotics/antiplatelets; Z79.01 Long term (current) use of anticoagulants; Z79.899 Other long term (current) drug therapy
CPT/HCPCS: 0241U; 36415; 70496; 70498; 80048; 80076; 80307; 83735; 83880; 84484; 85025; 85610; 93005; 96361; 96374; 96375; 99285; J0131; J2765; Q9967

== ENCOUNTER → 2024-03-16 09:59 | Outpatient (BNV) | payer MEDICARE, OTHER, SELFPAY | PROVIDERS: Emergency Provider Emergency Medicine; PCP Internal Medicine; Visit Provider Internal Medicine Cardiovascular Disease | DX: H53.9 Unspecified visual disturbance (principal); Z86.73 Personal history of transient ischemic attack (TIA), and cerebral infarction without residual deficits | CPT/HCPCS: 93010 ==

== ENCOUNTER → 2024-03-16 10:00 | Outpatient (BNV) | payer MEDICARE, OTHER, SELFPAY | PROVIDERS: Emergency Provider Emergency Medicine; PCP Internal Medicine; Visit Provider Radiology Diagnostic Radiology | DX: H53.9 Unspecified visual disturbance (principal); Z86.73 Personal history of transient ischemic attack (TIA), and cerebral infarction without residual deficits | CPT/HCPCS: 70496; 70498 ==